=== PATIENT | male | born 1955 | race Caucasian/White ===

== ENCOUNTER 2017-01-20 21:31 | Emergency (ER) | payer OTHER ==
[~2017-01-20] VITALS: Ht 177.8 cm; Wt 81.8 kg
[~2017-01-20 21:31] MED LIST: IBUP-1827 PO; MULT-36 PO; OMEG1CAP5 PO
--- NOTE | 2017-01-20 21:41 | ED.REPORT ---
HPI-Chest Pain 40 and Over Date of Service Jan 20, 2017 ED Provider: Dr. Barry Kohler M.D. A 61 year old male with a medical history including hepatitis C, liver disease, and palpitations presents to the ED with intermittent episodes of exertional chest pain onset three weeks ago. The most recent episode started today with pain described as "heaviness" and radiation down his left arm. The episodes are usually accompanied by shortness of breath. The patient was seen by his PCP one week ago where he was diagnosed with a small NY due to elevated cardiac enzymes. Nursing Notes Stated Complaint: CHEST PAIN Nursing Notes Reviewed: Yes Allergies: Coded Allergies: Penicillins (Verified Allergy, Unknown, unknown, 01/20/17) was told had a reaction as a child Scheduled Multivitamin (Daily Multiple Vitamin) 1 Each Tablet 1 EACH PO DAILY Cresco-3 Fatty Acids/Fish Oil (Fish Oil 1,000 mg Capsule) 1 Each Capsule 1 EACH PO DAILY Scheduled PRN Ibuprofen (Ibuprofen) 600 Mg Tablet 600 MG PO QID PRN PRN For Pain General Time Seen by MD: 21:41 Chief Complaint Chest pain Hx Obtained From: Patient Arrived By: Walk-in Sudden in Onset?: Yes Onset Occurred: More than a week ago... (3 weeks) Symptom Duration: Intermittent Location: : Chest left: Chest right Quality: Heaviness, Painful Severity: Current: Moderate Severity: Maximum: Moderate Associated with: Reports: Shortness of Breath, Denies: Fever Pertinent Negative: Relieved by nothing Recent Healthcare: Recent doctor visit, Prior workup Similar Sx Previous: Yes Past Medical History Past Medical History Intermittent episodes of tachycardia Hepatitis C Liver disease Left spermatocele Small NY Past Surgical History Tonsillectomy Spermatocelectomy Smoking History Former Smoker Review of Systems Constitutional: Denies: Fever Respiratory: Reports: Shortness of breath, Denies: Non-productive cough Cardiovascular: Reports: Chest pain GI: Denies: Diarrhea, Vomiting Musculoskeletal: Reports: Extremity pain (Left arm) Complete sys rev & neg: except as marked. Physical Exam Initial Vital Signs Vital Signs (First) Date Time Temp Pulse Resp B/P Pulse Ox O2 Delivery O2 Flow Rate FiO2 01/20/17 21:44 36.6 54 14 155/91 99 Room Air Initial VS: Reviewed Head / Eyes: Atraumatic, Normocephalic ENT: Conjunctiva normal, No scleral icterus Extremities: Vascular intact, Neuro intact, No swelling Skin: Warm, Dry Neurologic: Alert, Oriented, Nonfocal Psychiatric: Mood/affect normal, Behavior normal, Normal thought content General/Constitutional: Awake, Alert, No acute distress, Well appearing, Well hydrated Respiratory / Chest: Breath sounds NL, Breath sounds = bilat, No respiratory distress, No chest tenderness Cardiovascular: Heart rate NL, Regular rhythm, Heart sounds NL Abdomen: Soft, Non-tender Neck: Supple, Full range of motion, No JVD Interpretation & Diagnostics Lab Results Interpretation Result Diagram: 01/20/17 2300 01/20/17 230 Test 01/20/17 23:00 White Blood Count 5.4th/mm3 (3.8-10.1) Red Blood Count 5.69mil/mm3 (4.40-5.80) Hemoglobin 17.3g/dL (13.8-17.2) Hematocrit 51.3% (41.0-50.0) Mean Corpuscular Volume 90.2fL (81-100) Mean Corpuscular Hemoglobin 30.4pg (27.0-35.0) Mean Corpuscular Hemoglobin Concent 33.7% (32.0-37.0) Red Cell Distribution Width 13.1% (12.3-15.4) Platelet Count 182bil/L (150-400) Neutrophils (%) (Auto) 48.5% (40-74) Lymphocytes (%) (Auto) 35.2% (14-46) Monocytes (%) (Auto) 12.3% (4-12) Eosinophils (%) (Auto) 3.1% (0-5) Basophils (%) (Auto) 0.7% (0-3) Band Neutrophils % 0% (1-5) Prothrombin Time 11.2sec (8.1-12.5) Prothromb Time International Ratio 1.05ratio Activated Partial Thromboplast Time 27.5sec (22.8-33.0) Sodium Level 140mEq/L (134-144) Potassium Level 4.0mEq/L (3.5-5.2) Chloride Level 100mEq/L (97-108) Carbon Dioxide Level 25mmol/L (18-29) Blood Urea Nitrogen 21mg/dL (8-27) Creatinine 0.95mg/dL (0.76-1.27) Estimat Glomerular Filtration Rate 85mL/min (>59) Glucose Level 98mg/dL (60-99) Calcium Level 9.5mg/dL (8.5-10.1) Magnesium Level 2.3mg/dL (1.6-2.6) Total Bilirubin 0.4mg/dL (0.0-1.2) Aspartate Amino Transf (AST/SGOT) 44U/L (0-50) Alanine Aminotransferase (ALT/SGPT) 42U/L (0-44) Alkaline Phosphatase 83U/L (25-160) Troponin T 0.010ug/L (0.0-0.011) Pro-B-Type Natriuretic Peptide 62.68pg/mL (0-210) Total Protein 7.5g/dL (6.4-8.4) Albumin 4.6g/dL (3.4-5.0) ECG Interpretation ECG Interpretation: Sinus rhythm rate 81 Time: 23:49 Interpreted by: ED physician ECG Interpretation: Sinus rhythm rate 54 Time: 00:00 Interpreted by: ED physician X-Ray Chest Interpretation Chest Xray Interpretation: Normal exam View: Portable, 1 view Interpretation / Wet Read by: Wet read ED physician Re-Eval/Medical Decision Med Decision/Clinical Course 61-year-old with classic story of angina during exertion. He has not had any rest symptoms. He had an episode earlier today with exercise it was brief and resolved with rest. He was advised by an office physician that his labs obtained two days ago showed elevated troponin and that he should present to the ER. EKG today is normal twice. His troponin many hours after the incident and is negative. He has classic basically stable angina, and may or may not have had a small NY previously, but at this point is stable for outpatient stress testing, which is his preference. Bed was discussed and offered but he is not interested in staying unless absolutely necessary. He is discharged now for stress testing issues that can be arranged. I suspect that will be grossly positive and he will require catheter intervention. Daily aspirin prescribed. Source of Hx: Old records Time of Eval: 23:50 Patient Status: Condition improved Re-Evaluation/Progress Note: Discussed with patient x-ray and lab results, diagnosis, and plan for discharge. Follow-up and return to the ER instructions given. Patient agrees with plan for care and all questions were addressed. Counseled Regarding: Diagnosis, Lab results, Need for follow-up, When/why to return to ED Discharge & Departure Shift Change Sign-Out Response to Therapy: Improved Primary Impression: Chest pain on exertion Disposition: Home Discharge Condition All VS Reviewed: Yes Condition: Improved Patient Instructions: Angina (ED) Additional Instructions: The pain new or experiencing is almost surely angina, meaning the heart is not getting enough blood during exercise. If you develop this kind of discomfort at rest,you need to return immediately. Your cardiogram is relatively normal at present, but may not be so once the pain starts, and you need a stress test as soon as that can be arranged. Call your doctor first thing in the morning to expedite your stress test. Take a baby aspirin daily. Return if any immediate issues. Referrals: Chandra Zheng MD (PCP) Deonte Allen MD Attestation Portions of this note were transcribed by Bethanie Wren. I, Dr. Kohler, personally performed the history, physical exam, and medical decision-making; I reviewed and confirmed the accuracy of the information in the transcribed note. Signed by: Pita Monroe, 01/21/2017, 02:05 copies to: Chandra Zheng MD; Deonte Allen MD, Christopher W MD Jan 20, 2017 21:41 BETHANIE WREN Jan 20, 2017 22:03
[2017-01-20 21:44] VITALS: BP 155/91; PULSE 54; RESP 14; O2SAT 99
[2017-01-20 23:14] LABS: INR 1.05 ratio
[2017-01-20 23:22] LABS: BASOPHILS % (AUTO) 0.7 % (0-3); EOSINOPHILS % (AUTO) 3.1 % (0-5); MONOCYTES % (AUTO) 12.3 % (4-12); Mean Corpuscular Hemoglobin 30.4 pg (27.0-35.0); Mean Corpuscular Volume 90.2 fL (81-100); NEUTROPHILS % (AUTO) 48.5 % (40-74); Platelet Count 182 bil/L (150-400)
[2017-01-20 23:41] LABS: Magnesium 2.3 mg/dL (1.6-2.6); TROPONIN T 0.01 ug/L (0.0-0.011)
[2017-01-21 00:12] VITALS: BP 141/83; PULSE 54; RESP 18; O2SAT 99
[2017-01-21 00:40] VITALS: BP 155/90; PULSE 57; RESP 16; O2SAT 98
--- NOTE | 2017-01-21 09:00 | DRSVH ---
PROCEDURE: X-RAY CHEST ONE VIEW, PORTABLE ([id number]) INDICATIONS: CHEST PAIN TECHNIQUE: One view of the chest was acquired. COMPARISON: [facility], CR, CHEST 2VW, 01/15/2017, 1:02 PM. [facility], CR, CHEST 1V W (PORTABLE), 01/08/2013, 23:09. FINDINGS: Surgical changes and devices: None. Lungs and pleura: No pleural effusions or pneumothorax. Lungs are clear. Mediastinum: Mediastinal contours appear normal. Heart size is normal. Bones and chest wall: No suspicious bony lesions. Overlying soft tissues appear unremarkable. IMPRESSION: No acute cardiopulmonary disease. Dictated by: Palomo YADAV Interpreted: Janna Li MD on 01/21/2017 at 8:59 Transcribed by: DEE on 01/21/2017 at 8:59 Approved by: Janna Li M.D. on 01/21/2017 at 16:37
[2017-01-31] MEDS ORDERED: IBUP200C PO (12:41)
[2017-01-31] MEDS ORDERED: ASPI325T32 PO (12:41)
[2017-01-31] MEDS ORDERED: NITR0.4T SL (12:41)
== END 2017-01-21 00:43 | disposition home or self-care (01) ==
LOC: SED 21:31
DX: R07.1 Chest pain on breathing (principal); Z87.891 Personal history of nicotine dependence; Z88.0 Allergy status to penicillin

== ENCOUNTER 2017-02-03 00:17 | Day surgery (SDC) | payer OTHER ==
[~2017-02-03] VITALS: Ht 177.8 cm; Wt 81.0 kg
[2017-02-03] VITALS (15 sets, daily range): BP systolic 120–164; BP diastolic 74–105; PULSE 49–62; RESP 9–23; O2SAT 98–100
[~2017-02-03 00:17] MED LIST changes: +ASPI325T32 PO; -IBUP-1827 PO; +IBUP200C PO; +NITR0.4T SL
--- NOTE | 2017-02-03 07:00 | NUR ---
ADMISSION NOTE MALE PT ADMITTED FOR HEART CATH . DISCUSSED PLAN OF CARE WITH PT AND FAMILY. SEE ADMIT AND FLOW SHEET
[2017-02-03 07:37] LABS: BASOPHILS % (AUTO) 0.6 % (0-3); EOSINOPHILS % (AUTO) 3.9 % (0-5); MONOCYTES % (AUTO) 12.6 % (4-12); Mean Corpuscular Hemoglobin 30.5 pg (27.0-35.0); NEUTROPHILS % (AUTO) 55.8 % (40-74); Platelet Count 170 bil/L (150-400)
[2017-02-03 07:52] LABS: INR 1.05 ratio
[2017-02-03] MEDS ORDERED: 0.9% Sodium Chloride 1,000 ML ONE (08:07)
[2017-02-03] MEDS ORDERED: Heparin 1,000 Units/500 mL NS Premix IV ONE ×2 (08:07→09:52)
[2017-02-03] MEDS ORDERED: Heparin 1,000 Unit/mL 10 mL Inj ONE ×3 (08:07→10:02)
[2017-02-03] MEDS ORDERED: Nitroglycerin 50,000 mcg/250 mL D5W Premix IV ONE (08:19)
--- NOTE | 2017-02-03 09:09 | DRSVH ---
[facility] [address] [place] [address] Echocardiogram Report Name: ROC YEH Date: 02/03/2017 Height: 70 in Hospital Exam Location: [facility] Weight: 180 lb Gender: Male BSA: 2.0 m2 : 1955 Age: 61 yrs BP: 154/91 mmHg Reason For Study: Abnormal stress test Ordering Physician: Performed By: Avinash Helms Interpretation Summary Normal sinus rhythm. Normal LV size, wall thickness, wall motion and LV systolic function. EF is 60-65%. Stage II diastolic dysfunction. No significant valvular abnormalities. No prior study available for comparison Procedure: A two-dimensional transthoracic echocardiogram with color flow and Doppler was performed. The study quality was technically good. There is no prior echocardiogram noted for this patient. The patient was in sinus bradycardia with heart rates between 51-60 bpm during the exam. Left Ventricle: The left ventricle is normal in size, wall thickness, and systolic function without any focal wall motion abnormalities. Proximal septal thickening is noted. Trabeculae near apex are visualized. No thrombus is observed. The ejection fraction is estimated to be 60-65%. Left ventricular wall motion is normal. Right Ventricle: The right ventricle is normal in size, thickness and function. Atria: The left atrial size is normal. The right atrium is borderline dilated. There is no Doppler evidence for an interatrial shunt. The atrial septum is aneurysmal. Mitral Valve: The mitral valve is normal. There is trace mitral regurgitation. Aortic Valve: The aortic valve is normal in structure and function. No aortic regurgitation is present. Tricuspid Valve: The tricuspid valve is normal. There is a trace or physiologic amount of tricuspid regurgitation. Pulmonary artery pressures cannot be estimated because of the lack of a measurable TR jet velocity. Pulmonic Valve: The pulmonic valve leaflets are thin and pliable; valve motion is normal. There is a trace or physiologic amount of pulmonic regurgitation. Great Vessels: The aortic root is normal size. The ascending aorta is mildly enlarged. The pulmonary artery is normal size. The IVC is of normal diameter and collapses greater than 50% with a sniff. This suggests a low right atrial pressure of 3 mm Hg. Pericardium/ Pleura There is no pericardial effusion. There is no pleural effusion. MMode/2D Measurements & Calculations LVIDd: 4.5 cm RA long axis LVOT diam: 2.1 cm LVIDs: 2.6 cm LA A2 area: 21.2 cm AoV Opening FS: 41.3 % LA A4 area: 14.6 cm RA area EPSS: 0.27 cm LA length (vol) Ao root diam IVSd: 0.98 cm : 18.0 cm LVPWd: 0.82 cm LA vol: 54.7 ml RA vol asc Aorta Diam LA vol index : 57.4 ml RA Ao Arch Diam (Prox : 28.7 mm2 Trans): 2.9 cm IVC diam: 0.98 cm LV costello. diameter/BSA LV sys. diameter/BSA RVD1 (basal) TAPSE: 2.2 cm (cm/m^2): 2.3 (cm/m^2): 1.3 Doppler Measurements & Calculations Ao V2 max: 134.5 cm/secMV E max xavi MV E/A: 1.4 PA V2 max Ao max P.2 mmHg : 73.3 cm/sec Med Peak E' Xavi : 67.8 cm/sec Ao mean P.7 mmHg MV A max xavi PA mean PG LVOT Max Xavi : 53.3 cm/sec E/E' med: 15.8 : 1.2 mmHg : 125.2 cm/sec Lat Peak E' Xavi ANNALISA(I,D): 3.3 cm E/E' lat: 10.7 sev ratio: 0.95 E/e' average MV A dur: 0.12 sec MV dec time: 0.22 sec Ao V2 mean LV V1 max PG PA V2 mean : 89.2 cm/sec : 52.4 cm/sec Ao V2 VTI: 30.9 cmLV V1 VTI: 29.3 cm PA pr(Accel) : 22.9 mmHg ANNALISA(V,D): 3.2 cm2 ANNALISA indexed to BSA (cm^2/m^2): 1.6 Reading Physician:09:08 AM
[2017-02-03] MEDS ORDERED: fentaNYL-PF 50 mCg/mL 2 mL Inj ONE ×2 (09:11→09:59)
[2017-02-03] MEDS ORDERED: Atropine 1 mg/10 mL (Code) Syringe ONE (10:13)
--- NOTE | 2017-02-03 10:35 | CS94 ---
[address] [address] DIAGNOSTIC CARDIAC CATHETERIZATION PATIENT: ROC YEH : 1955 MR#: [id number] ADMIT: 02/03/2017 JOB ID: [id number] SERVICE DATE: 02/03/2017 CHIEF COMPLAINT: Chest pressure. HISTORY OF PRESENT ILLNESS: The patient is a delightful, 61-year-old man, with no obvious coronary artery disease risk factors. He has exertional classic angina and abnormal graded exercise stress test characterized by abnormal ST depressions and apical perfusion defect. PROCEDURES PERFORMED: 1. Left heart [id number]-[id number] coronary angiogram. 2. Hemodynamic measurements with left ventricular end-diastolic pressure checkup. 3. Right common femoral angiogram with vascular access under ultrasound guidance. COMPLICATIONS: None in the immediate postprocedure period. METHOD: Following informed consent, the patient was prepped and draped in the usual sterile fashion. A 6-[place] Citizen sheath was placed in the right common femoral artery. Sheath placement was confirmed via femoral angiogram. JL4 and JR4 catheters were used to engage left main and right coronary artery ostia, respectively. Hand injection in craniocaudal angulation was used to obtain selective coronary angiograms. All exchanges were performed over a wire. Pigtail was advanced in the left ventricle. Left ventricular end-diastolic pressure was recorded. At this point in time, ventriculogram was deferred by intention in attempt to conserve contrast for upcoming intervention. FINDINGS: Femoral access right common femoral artery gives rise to SFA and profunda. There is no hemodynamically significant stenoses present. The sheath enters the right common femoral artery at the lower third of the femoral head. HEMODYNAMICS: Blood pressure is 161/83. There is no evidence of aortic stenosis based on pullback. The patient was in normal sinus rhythm during the case at a rate of 62 beats per minute. Left ventricular end-diastolic pressure is 13 mmHg. CORONARY ANGIOGRAM: Left main is normal caliber vessel, gives rise to the LAD and circumflex. No obstructive lesions are seen in the left main. There is no dampening on engagement. There is excellent blowback present. LAD is a wrap-around vessel. It demonstrates RADHA-II flow. There is an 80% proximal LAD lesion. It is best appreciated on BILLINGS caudal view or AP caudal view. LAD gives rise to a large diagonal branch, medium second diagonal branch and a very small third diagonal branch as well as multiple septal perforators. There is a 50% stenosis in the mid LAD at a correction point between the first and the second diagonal branch, but whether it is hemodynamically significant is questionable. It is interesting that right coronary artery seen to be filling via left to right collaterals. The circumflex is a nondominant vessel. It gives rise to a medium OM-1, a small OM-2, and small OM-3. Vessels are characterized by some tortuosity, which could be consistent with underlying hypertension. Right coronary artery is a dominant vessel. There is a long 50% stenosis in the midportion of the right coronary artery, and there is, unfortunately, an 80% stenosis in the proximal portion of the PDA. It is a short tubular lesion. Otherwise, there are no hemodynamically significant lesions present. IMPRESSION: Multivessel coronary artery disease with 80% proximal left anterior descending lesion, 50% mid left anterior descending lesion, and 80% posterior descending artery lesion. PLAN: Recommend interventional consultation and low threshold to pursue percutaneous coronary intervention to alleviate symptoms. Thank you very much for the opportunity to evaluate this patient.
--- NOTE | 2017-02-03 10:52 | NUR ---
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 SEE FLOW SHEET
--- NOTE | 2017-02-03 11:41 | DI95 ---
[place] [address] INTERVENTIONAL CARDIAC CATHETERIZATION PATIENT: ROC YEH : 1955 MR#: [id number] ADMIT: 02/03/2017 JOB ID: [id number] CORRECTED REPORT DATE OF PROCEDURE: 02/03/2017 PATIENT PROFILE: The patient is a 61-year-old male with history of hepatitis C. He presented with angina pectoris. PROCEDURE: 1. Balloon angioplasty and stenting to the proximal left anterior descending. 2. Balloon angioplasty and stenting to the ramus intermedius. VASCULAR CLOSURE DEVICE: Perclose. COMPLICATIONS: None. METHOD: Following diagnostic cardiac catheterization performed by Dr. Bai, the femoral sheath was upsized to a 7-[place] sheath. Heparin 12,000 units and prasugrel 60 mg were given. A 7-[place] JL4 guide was advanced to the left coronary ostium. One Runthrough wire was placed inside the left anterior descending artery. Another Runthrough wire was placed inside the ramus intermedius. The left anterior descending artery lesion was pre-dilated with a 2.5 x 20 mm balloon. The ramus intermedius was pre-dilated with a 2.0 x 15 mm balloon. A Resolute 2.75 x 26 mm stent was placed inside the left anterior descending artery, and a Xience 2.25 x 18 mm stent was placed inside the ramus intermedius. Both stents were deployed simultaneously, with the Resolute inflated up to 9 atmospheres and Xience inflated up to 10 atmospheres for 30 seconds. A 3.0 x 12 mm balloon was used for post stent deployment dilation in the left anterior descending artery. It was inflated up to 17 atmospheres for 30 seconds. Final angiogram was obtained. Following sheath removal, hemostasis was achieved by using Perclose device. The patient tolerated the procedure well. He was transferred to [facility] in good condition. TOTAL CONTRAST USED: 150 cc. FLUOROSCOPY TIME: 7.9 minutes. TOTAL RADIATION DOSE: 1045 milligray. RESULTS: Successful balloon angioplasty and stenting to the tight proximal left anterior descending and proximal ramus intermedius by deploying two drug-eluting stents to achieve an excellent angiographic result with RADHA-3 flow distally. Corrected by GS 03/27/17 at 8:05am DOS. MTDD
== END 2017-02-03 23:59 | disposition home or self-care (01) ==
LOC: SOUO 00:17
PROVIDERS: ATTEND Internal Medicine
DX: I25.119 Atherosclerotic heart disease of native coronary artery with unspecified angina pectoris (principal); B18.2 Chronic viral hepatitis C; Z87.891 Personal history of nicotine dependence; Z79.82 Long term (current) use of aspirin; E78.5 Hyperlipidemia, unspecified
CPT/HCPCS: 36415; 80048; 85025; 85610; 93005; 93458; 99152; 99153; C1725; C1760; C1769; C1874; C1887; C8929; C9600; J1200; J1644; J2060; J2250; J3010; J7030; Q9967

== ENCOUNTER 2017-02-06 16:43 | Inpatient (IN) | payer OTHER ==
[~2017-02-06] VITALS: Ht 177.8 cm; Wt 76.2 kg
[~2017-02-06 16:43] MED LIST changes: -OMEG1CAP5 PO
[2017-02-06 16:44] VITALS: BP 153/106; PULSE 63; RESP 16; O2SAT 99
--- NOTE | 2017-02-06 17:18 | ED.REPORT ---
HPI-Chest Pain 40 and Over Date of Service Feb 06, 2017 ED Provider: Abdulaziz Pratt DO Pt is a 61 y.o. male who presents to the ED c/o left chest pain onset 0230 today. Pt states that he woke up at 0230 with severe chest pain that lasted 30 minutes, he was then able to go back to sleep. Upon waking up he had left chest pain described as dull, deep, and constant. He states that the pain worsens with exertion and improved when he used Nitro. Pt reports having 4 stents placed 2 days ago, and upon discharge from the hospital he was pain free. He says his current pain is similar to what he felt prior to getting his stress test and stents placed. He contacted his brasswind instrument repairer earlier today and she recommended he come into the ED. He denies associated nausea, vomiting, diarrhea , SOB, and fever. Nursing Notes Stated Complaint: CHEST PAIN Chief Complaint: Chest Pain Nursing Notes Reviewed: Yes Allergies: Coded Allergies: Penicillins (Verified Allergy, Unknown, unknown, 02/06/17) was told had a reaction as a child Scheduled Aspirin (Aspirin) 325 Mg Tablet 162.5 MG PO DAILY Clopidogrel (Clopidogrel) 75 Mg Tablet 75 MG PO DAILY Multivit with Calcium,Iron,Min (Therapeutic M) 1 Each Tablet 1 EACH PO DAILY Scheduled PRN Carboxymethylcellulose Sodium (Refresh Tears) 15 Ml Drops 1 APPLIC OP PRN PRN PRN DRY EYES Hydrocortisone (Hydrocortisone) 1 % Cream..g. 1 APPLIC TOPICAL BID PRN PRN For Itching Ibuprofen (Ibuprofen) 200 Mg Capsule 400 MG PO DAILY PRN PRN Headache USES SPARINGLY Nitroglycerin SL (Nitrostat) 0.4 Mg Tab.subl 0.4 MG SL Q5MIN PRN PRN For Chest Pain Sildenafil Citrate (Sildenafil) 20 Mg Tablet 20 MG PO DIRECTED PRN PRN for sexual activity General Time Seen by MD: 17:17 Chief Complaint Chest pain Hx Obtained From: Patient Arrived By: Walk-in Sudden in Onset?: Yes Onset Occurred: 9 - 12 hours ago Context of Onset: Recent surgery Symptom Duration: Intermittent Location: : Chest left Quality: Dull, Painful Radiation: : Does not radiate Severity: Current: Moderate Severity: Maximum: Severe Recent Healthcare: Previous surgery Past Medical History Past Medical History Intermittent episodes of tachycardia Hepatitis C Liver disease Left spermatocele Small [place] Past Surgical History Tonsillectomy Spermatocelectomy Cardiac stents Smoking History Former Smoker Review of Systems Constitutional: Denies: Fever Respiratory: Denies: Shortness of breath Cardiovascular: Reports: Chest pain GI: Denies: Diarrhea, Nausea, Vomiting Complete sys rev & neg: except as marked. Physical Exam Initial Vital Signs Vital Signs (First) Date Time Temp Pulse Resp B/P Pulse Ox O2 Delivery O2 Flow Rate FiO2 02/06/17 16:44 36.7 63 16 153/106 99 Room Air Initial VS: Reviewed Head / Eyes: Atraumatic, Normocephalic Extremities: Vascular intact, Neuro intact Skin: Warm, Dry, No cyanosis Neurologic: Alert, Oriented, Nonfocal Psychiatric: Mood/affect normal, Behavior normal, Normal thought content General/Constitutional: Awake, Alert, No acute distress, Well appearing, Well developed, Well hydrated, Well nourished, Not toxic appearing Respiratory / Chest: Atraumatic, Breath sounds NL, Breath sounds = bilat, No respiratory distress, No rales, No rhonchi, No wheezing, No retractions, No stridor, No chest tenderness Cardiovascular: Heart rate NL, Regular rhythm, Heart sounds NL, No gallop, No murmurs, No rubs, Peripheral circulation NL Abdomen: Atraumatic, Soft, Non-tender, No distention Interpretation & Diagnostics Lab Results Interpretation Result Diagram: 02/06/17 1723 02/06/17 1723 Test 02/06/17 17:23 White Blood Count 5.1th/mm3 (3.8-10.1) Red Blood Count 5.53mil/mm3 (4.40-5.80) Hemoglobin 16.8g/dL (13.8-17.2) Hematocrit 49.4% (41.0-50.0) Mean Corpuscular Volume 89.3fL (81-100) Mean Corpuscular Hemoglobin 30.4pg (27.0-35.0) Mean Corpuscular Hemoglobin Concent 34.0% (32.0-37.0) Red Cell Distribution Width 13.0% (12.3-15.4) Platelet Count 172bil/L (150-400) Neutrophils (%) (Auto) 66.6% (40-74) Lymphocytes (%) (Auto) 23.3% (14-46) Monocytes (%) (Auto) 8.0% (4-12) Eosinophils (%) (Auto) 1.9% (0-5) Basophils (%) (Auto) 0.2% (0-3) Activated Partial Thromboplast Time 27.5sec (22.8-33.0) Sodium Level 140mEq/L (134-144) Potassium Level 4.4mEq/L (3.5-5.2) Chloride Level 104mEq/L (97-108) Carbon Dioxide Level 21mmol/L (18-29) Blood Urea Nitrogen 20mg/dL (8-27) Creatinine 0.87mg/dL (0.76-1.27) Estimat Glomerular Filtration Rate 94mL/min (>59) Glucose Level 104mg/dL (60-99) Calcium Level 9.1mg/dL (8.5-10.1) Magnesium Level 2.2mg/dL (1.6-2.6) Total Bilirubin 0.5mg/dL (0.0-1.2) Aspartate Amino Transf (AST/SGOT) 39U/L (0-50) Alanine Aminotransferase (ALT/SGPT) 36U/L (0-44) Alkaline Phosphatase 78U/L (25-160) Total Creatine Kinase 169U/L (21-232) Creatine Kinase MB 5.0ng/mL (0.0-10.4) Creatine Kinase MB % % (0.0-5.0) Troponin T 0.065ug/L (0.0-0.011) Total Protein 7.2g/dL (6.4-8.4) Albumin 4.4g/dL (3.4-5.0) Thyroid Stimulating Hormone (TSH) 4.320uIU/mL (0.450-4.500) ECG Interpretation ECG Interpretation: No acute ST segment depression or elevation Poor R-wave progression Q-waves in V1-V2 Time: 16:55 Interpreted by: ED physician Normal ECG Interpretation: Normal rate (57), Normal sinus rhythm Cardiac / Vascular Lab Interp Troponin abnormal Re-Eval/Medical Decision Med Decision/Clinical Course Chest pain and elevated troponin status post cath and stent placement. EKG does not show evidence of a devastating stent occlusion however. Signs and symptoms are consistent with a non-ST elevation [place] versus acute coronary syndrome. We will admit on IV heparin and nitrates and aspirin and the first of Plavix he is taking. I consulted with cardiology home concurs. Admit to the PCU for serial troponins and possible back to the sleep lab technician. Consultation #1: Referral / Consult Name: Hema Zuleta MD Call Returned at: 18:35 Note: Consulted with Dr. Zuleta about pt condition. Recommends administering Heparin and Plavix. Consultation #2: Referral / Consult Name: Brandon Mcpherson MD Consulted With: Hospitalist Call Returned at: 18:46 Chief Service Observer: Will see patient, Agrees with eval, Agrees with plan, Accepts admit Note: Discussed pt condition and consult with Dr. Zuleta. Accepts admit. Counseled Regarding: Diagnosis Discharge & Departure Primary Impression: Non-ST elevation myocardial infarction (NSTEMI) Disposition: ADMITTED TO HOSPITAL Discharge Condition All VS Reviewed: Yes Condition: No Change Referrals: Deonte Allen MD (PCP) Pita Attestation Portions of this note were transcribed by Juaquin Godinez. I, Dr. Pratt personally performed the history, physical exam and medical decision-making; I reviewed and confirmed the accuracy of the information in the transcribed note. Signed by : Pita Garibay, 02/06/17 and 1999. copies to: Deonte Allen MD, Todd P DO Feb 06, 2017 17:18 JUAQUIN GODINEZ Feb 06, 2017 17:26
[2017-02-06] MEDS ORDERED: Nitroglycerin 2% 1 Gm Ointment TOPICAL ONE (17:25)
[2017-02-06 17:35] LABS: BASOPHILS % (AUTO) 0.2 % (0-3); EOSINOPHILS % (AUTO) 1.9 % (0-5); Mean Corpuscular Hemoglobin 30.4 pg (27.0-35.0); Mean Corpuscular Volume 89.3 fL (81-100); NEUTROPHILS % (AUTO) 66.6 % (40-74); Platelet Count 172 bil/L (150-400)
--- NOTE | 2017-02-06 18:05 | DRSVH ---
PROCEDURE: X-RAY CHEST, TWO VIEWS ([id number]) INDICATIONS: chest pain TECHNIQUE: 2 views of the chest were acquired. COMPARISON: [facility], CR, XR CHEST 1VW (PORTABLE), 01/20/2017, 22:18. FINDINGS: Surgical changes and devices: customer service consultant leads are seen over the chest. Lungs and pleura: No pleural effusions or pneumothorax. Lungs are clear. Mediastinum: Mediastinal contours are normal. Heart size is normal. Bones and chest wall: No suspicious bony abnormalities. Soft tissues appear unremarkable. IMPRESSION: No acute or active disease is seen in the two-view chest. Cause of chest pain is not iden tified. Dictated by: Tenzin Hayden M.D. on 02/06/2017 at 18:03 Approved by: Tenzin Hayden M.D. on 02/06/2017 at 18:04
[2017-02-06 18:12] LABS: Magnesium 2.2 mg/dL (1.6-2.6)
[2017-02-06 18:17] LABS: TROPONIN T 0.065 ug/L (0.0-0.011)
[2017-02-06 18:23] VITALS: BP 138/91; PULSE 58; O2SAT 97
[2017-02-06] MEDS ORDERED: Heparin 25K Unit/500mL 0.45 NS 25,000 UNIT in IV Premix 1 EACH IV SCH (18:35)
[2017-02-06] MEDS ORDERED: Heparin 5,000 Unit/mL Inj IVPUSH PRN (18:35)
[2017-02-06 18:39] VITALS: BP 148/88; PULSE 60
[2017-02-06] MEDS ORDERED: Ondansetron 2 mg/mL 2 mL Inj IVPUSH PRN (18:50)
[2017-02-06] MEDS ORDERED: Alum-Mag Hydrox-Simeth 30 mL Suspension PO PRN (18:50)
[2017-02-06] MEDS ORDERED: Atropine 1 mg/10 mL (Code) Syringe IVPUSH PRN (18:50)
[2017-02-06] MEDS ORDERED: Polyethylene Glycol (PEG) 17 Gm Powder PO PRN (18:50)
[2017-02-06] MEDS ORDERED: Senna-Docusate 8.6-50 mg Tablet PO PRN (18:50)
--- NOTE | 2017-02-06 19:25 | PCM.HPMED ---
Subjective Date of Service Feb 06, 2017 Primary Provider: Admitting Physician: Primary Care Physician: Deonte Allen MD Attending Physician: Chief Complaint: Chest pain Allergies Coded Allergies: Penicillins (Verified Allergy, Unknown, unknown, 02/06/17) was told had a reaction as a child Home Medications Ibuprofen (Ibuprofen) 200 Mg Capsule 200 MG PO QID PRN PRN For Pain Nitroglycerin SL (Nitrostat) 0.4 Mg Tab.subl 0.4 MG SL Q5MIN PRN PRN For Chest Pain PMH Intermittent episodes of tachycardia Hepatitis C Liver disease Left spermatocele Small [place] Surgical History Tonsillectomy Spermatocelectomy Cardiac stents Social History Hx Alcohol Use: No Hx Substance Use: No (REMOTE HX OF MARIJUANA) Smoking Status: Former Smoker Exam Vital Signs Vital Sign - Last Date Time Temp Pulse Resp B/P Pulse Ox O2 Delivery O2 Flow Rate FiO2 02/06/17 18:39 60 148/88 02/06/17 18:23 97 02/06/17 16:44 36.7 16 Room Air Lab and Diagnostics Result Diagram: 02/06/17 1723 02/06/17 1723 X-Rays, CTs and MRIs Chest X-ray reviewed : No acute or active disease is seen in the two-view chest. Cause of chest pain is not identified. EKG : No ST depression or elevation Assessment & Plan 1. SNTEMI 2. Hyoertensive Urgency 3. h/o CAD Telemetry monitoring . 12 EKG for recurrent chest pain or worsening chest pain Aspirin 81 mg PO daily . Start Metoprolol 25 mg PO twice daily. Atorvastatin 40 mg PO daily. Nitroglycerine for chest pain . Morphine sulfate for chest marshall not relieved by nitroglycerine Heparin drip per protocol. Cardiology consulted for possible cardiac cath . Troponin trend. 1st set positive ( 0.06) A1c, TSH, Lipid profile, CRP . Pain Evaluation: Adequate Pain Control VTE Prophylaxis: Other (Anticoagulation iwth heparin drip ) Resuscitation Status: CPR: Attempt Resuscitation Time spent 75 minutes Brandon Mcpherson MD Feb 06, 2017 19:24
[2017-02-06 19:42] LABS: Creatine Kinase 169 U/L (21-232)
--- NOTE | 2017-02-06 20:31 | PCM.HPMED ---
Subjective Date of Service Feb 06, 2017 Primary Provider: Admitting Physician: Brandon Mcpherson MD Primary Care Physician: Deonte Allen MD Attending Physician: Brandon Mcpherson MD Chief Complaint: Chest pain History of Present Illness: 61 y/o with pst medical history of hypertension, CAD with cardiac catheterization and stent placement 2 days ago came to ER with sudden onset of cheat pain , 6-7/10 in intensity, non radiating , relived with nitroglycerine . Patient stated he called his core winder who recommended him to come to the ER for evaluation. Work up show mildly elevated troponin but no EKG changes. Patient denies , fever, chills , shortness of breath. He stated he has been complaint with his Plavix an Aspirin since his stent placement 2 days ago. His BP was above 200 systolic on presentation with a diastolic od 120 Review of Systems: A comprehensive review x 10 points is negative except for chest pain as described above in HPI Allergies Coded Allergies: Penicillins (Verified Allergy, Unknown, unknown, 02/06/17) was told had a reaction as a child Home Medications Ibuprofen (Ibuprofen) 200 Mg Capsule 200 MG PO QID PRN PRN For Pain Nitroglycerin SL (Nitrostat) 0.4 Mg Tab.subl 0.4 MG SL Q5MIN PRN PRN For Chest Pain PMH Intermittent episodes of tachycardia Hepatitis C Liver disease Left spermatocele Small [place] Surgical History Cardiac catheterization and stent placement Family History Reviewed and is positive for multiple cancer but no CAD Social History Hx Alcohol Use: No (A beer or 2 daily) Hx Substance Use: No (REMOTE HX OF MARIJUANA) Smoking Status: Former Smoker Living Arrangement: with Family Exam Vital Signs Vital Sign - Last Date Time Temp Pulse Resp B/P Pulse Ox O2 Delivery O2 Flow Rate FiO2 02/06/17 18:39 60 148/88 02/06/17 18:23 97 02/06/17 16:44 36.7 16 Room Air General: Alert, Oriented X3, Cooperative, No Acute Distress Head: Normal Eyes: PERRLA, EOMI, Scleral Anicteric Mouth: Mucous Membr Moist/[place] Neck: Supple, No Thyromegaly, Other (Trachea is midline ) Chest & Lungs: Clear to auscultation & percussion, No adventitious breath sounds Cardiovascular: Regular Rate/Rhythm, Normal S1, Normal S2, No Murmurs/Rubs/ Gallops Abdomen: Non-tender, Benign, No masses, No hepatosplenomegaly Extremities: No cyanosis/clubbing/edma bilat Neurological: Grossly Neurologically Intact, Cranial Nerves 2-12 Intact, Strength Normal 03/04 ext Lab and Diagnostics Result Diagram: 02/06/17 1723 02/06/17 1723 X-Rays, CTs and MRIs Chest X-ray reviewed : No acute or active disease is seen in the two-view chest. Cause of chest pain is not identified. EKG : No ST depression or elevation IVs and Medications Medications Reviewed: Medications were reviewed in detail Assessment & Plan 1. SNTEMI 2. Hypertensive Urgency 3. h/o CAD 4. Diastolic and systolic Hypertension Telemetry monitoring . 12 EKG for recurrent chest pain or worsening chest pain Aspirin 81 mg PO daily . Plvix 75 mg PO daily Start Metoprolol 25 mg PO twice daily for hypertension and hoping of some diastolic relaxation . HE will need titration for BP control Patient had both systolic and diastolic hypertension Atorvastatin 40 mg PO daily. Nitroglycerine for chest pain . Morphine sulfate for chest marshall not relieved by nitroglycerine Heparin drip per protocol. Troponin trend. 1st set positive ( 0.06) . Elevated topspin is likely due to recent cardiac catheterization and stent placement ( 2 days ago) . His chest pain may be provoked by uncontrolled hypertension with systolic of 200 on presentation in-stent stenosis is less likely . Patient sated he is complaint with both Aspirin and Plavix . A1c, TSH, Lipid profile Cardiology consulted for further recommendation Pain Evaluation: Adequate Pain Control VTE Prophylaxis: Other (Anticoagulation iwth heparin drip ) Resuscitation Status: CPR: Attempt Resuscitation Time spent 75 minutes Brandon Mcpherson MD Feb 06, 2017 20:30
[2017-02-06 20:34] VITALS: BP_SYST 131; BP_SYST 156; BP_DIAS 104; BP_DIAS 75; PULSE 64; RESP 12; O2SAT 97; O2SAT 98
[2017-02-06] MEDS ORDERED: HYDR28.484 TOPICAL (20:45)
[2017-02-06] MEDS ORDERED: CLOP75TA28 PO (20:45)
[2017-02-06] MEDS ORDERED: MULT-140 PO (20:45)
[2017-02-06] MEDS ORDERED: CARB15DR74 OP (20:46)
[2017-02-06] MEDS ORDERED: SILD20TA14 PO (20:47)
[2017-02-06 23:25] VITALS: PULSE 85
[2017-02-06 23:52] VITALS: BP 147/69; PULSE 60; O2SAT 99
[2017-02-07] VITALS (14 sets, daily range): BP systolic 125–181; BP diastolic 74–107; PULSE 48–62; RESP 10–16; O2SAT 96–100
[2017-02-07] MEDS: Sodium Chloride LOK Flush 10 mL Syringe IVFLUSH SCH ×3 (00:54→19:59)
[2017-02-07 03:04] LABS: BASOPHILS % (AUTO) 0.7 % (0-3); EOSINOPHILS % (AUTO) 6.3 % (0-5); MONOCYTES % (AUTO) 11.3 % (4-12); Mean Corpuscular Hemoglobin 30.4 pg (27.0-35.0); Mean Corpuscular Volume 90.1 fL (81-100); NEUTROPHILS % (AUTO) 50.6 % (40-74); Platelet Count 154 bil/L (150-400)
[2017-02-07 04:08] LABS: Creatine Kinase 136 U/L (21-232)
[2017-02-07 04:10] LABS: TROPONIN T 0.071 ug/L (0.0-0.011)
--- NOTE | 2017-02-07 13:22 | CONS ---
[address] [address] CONSULTATION REPORT PATIENT: ROC YEH : 1955 MR#: [id number] ADMIT: 02/06/2017 JOB ID: [id number] DATE OF SERVICE: 02/07/2017 CARDIOLOGY CONSULTATION: REASON FOR CONSULTATION: I have been asked to see the patient who is a very pleasant, 61-year-old gentleman presenting with recurrent unstable anginal symptoms three days out following stent placement to the LAD and ramus intermedius. HISTORY OF PRESENT ILLNESS: The patient has been aware of exertional burning precordial chest discomfort, which he assumed was pulmonary related over about the past month. His primary care provider ordered an exercise stress study, which was significantly abnormal, and he was referred to Dr. Bai a week ago. He was admitted on February 03 for diagnostic coronary angiography, which demonstrated evidence of significant disease involving his proximal LAD, involving also a ramus intermedius vessel, with diffuse atherosclerosis in his right coronary artery, with about an 80% PDA lesion noted as well. The patient underwent stent placement with two drug-coated stents. The proximal LAD was stented with a 2.75 x 26 mm drug-eluting stent, and the ramus intermedius vessel was stented with a 2.25 x 18 mm drug-eluting stent. Patient was discharged home on aspirin and Plavix but was not discharged home on any other cardiac medications including statins. Early morning at around 2:30, he was awakened by symptoms of burning precordial chest discomfort, which gradually resolved but recurred off and on throughout the day most of the time at rest. On one occasion, he took a sublingual nitroglycerin, which was successful in alleviating the discomfort. He contacted our office yesterday late afternoon and was advised to present to the emergency department for evaluation. In the emergency department his blood work was notable for a troponin level of 0.065. His ECG showed no ST-segment changes of any significance, and the patient was admitted to the hospital and started up on nitrates, aspirin and intravenous heparin, and was kept n.p.o. for possible cardiac catheterization. Today, this patient states that he has been feeling generally well. He relates that he has been aware of moderate hypertension over the years, as he has visited his physicians with blood pressures ranging between 130 to 160 systolic, though he has not been treated. His cholesterol has not been checked for many years. He does not have a family history of chronic ischemic heart disease, and quit smoking in the late . PAST MEDICAL HISTORY: Otherwise notable for history of hepatitis C, which was treated with medication and apparently, he has been cured. HOME MEDICATIONS: Include: 1. Aspirin 162 mg daily. 2. Clopidogrel 75 mg daily. 3. Multivitamin daily. 4. He does have Viagra at home which he uses as needed for sexual activity, and it is very important that we make sure that he knows the contraindication to Viagra anytime surrounding nitroglycerin medication administration. REVIEW OF SYSTEMS: Notable for the absence of cough or sputum production. He has had no complaints of fever. He denies any history of stroke or TIA-like symptoms, and has no complaints of claudication. He has no bleeding issues. He knows of no kidney problems. His review of systems is otherwise unremarkable. PHYSICAL EXAMINATION: Shows a normal appearing 61-year-old gentleman. He is 5 feet 10 inches tall, 167 pounds. Body mass index 24. Current blood pressure is 125/74 with a heart rate in the 60s. He is saturating 98% on room air and is afebrile. HEENT examination is unremarkable. Jugular venous pressure looks normal. No carotid bruits. Lung sparks are clear. Cardiac auscultation is notable for a fairly prominent S4 gallop audible at the left lower sternal border without any significant murmurs. Abdomen is soft and nontender. No palpable organomegaly. I hear no aortic bruits. Femoral pulses are normal without bruit. Distal extremity pulses are normal. He has no edema. Skin is unremarkable. No focal neurologic findings noted. He is alert and oriented and provides a good history. LABORATORY DATA: Notable for normal CBC. His troponin level is abnormal and has increased slightly from 0.065 to 0.071. A TSH level is normal. His LDL cholesterol is 110, his total cholesterol 191, triglycerides up somewhat at 207 with an HDL cholesterol of 40. Renal function is normal with normal electrolytes. DIAGNOSTIC DATA: Admission EKG appears normal. The patient's chest x-ray looks normal as well. IMPRESSION: The patient presents three days following two drug-eluting stent placements, with recurrent unstable angina and evidence of probable [id number]-[id number] myocardial infarction. It would be very unusual for him to have early stent thrombosis in view of his aspirin and Plavix therapy. It is possible that his symptoms relate to his right coronary lesion and the posterior descending artery and clearly, diagnostic coronary angiography is needed. I have spoken with Dr. Mattson who did his intervention three or four days ago, and he is willing to proceed with diagnostic coronary angiography this afternoon. I have spoken with the patient regarding the potential risks of coronary angiography and repeat stenting. We talked about the benefits particularly in view of his positive enzymes and unstable symptoms. He is aware of all these factors and is anxious to proceed as recommended. This patient needs to go home on medication for hypertension and for dyslipidemia. He should go home on 80 mg of atorvastatin daily and probably a long-acting beta-valeria such as atenolol 25-50 mg daily or an angiotensin-converting enzyme inhibitor such as lisinopril 20 mg daily since he is somewhat bradycardic today. I will plan on following up with his progress tomorrow and make further recommendations prior to anticipated discharge.
[2017-02-07] MEDS ORDERED: Nitroglycerin 50,000 mcg/250 mL D5W Premix IV ONE (14:09)
[2017-02-07] MEDS ORDERED: Heparin 1,000 Unit/mL 10 mL Inj ONE ×2 (14:09→15:56)
[2017-02-07] MEDS ORDERED: 0.9% Sodium Chloride 1,000 ML ONE ×2 (14:09)
[2017-02-07] MEDS ORDERED: Heparin 1,000 Units/500 mL NS Premix IV ONE (14:09)
[2017-02-07] MEDS ORDERED: fentaNYL-PF 50 mCg/mL 2 mL Inj ONE ×2 (14:44→16:00)
[2017-02-07] MEDS ORDERED: Adenosine Inj 20 ML IV ONE ×2 (15:15)
[2017-02-07] MEDS ORDERED: 0.9% Sodium Chloride 100 ML ONE (15:16)
--- NOTE | 2017-02-07 16:38 | NUR ---
pOST CARDIAC CATH: Patient arrives from [facility], alert and denying pain. Monitor displays NSR, right groin site is dry, soft and bruised. Bruising pre-existing from Cath on 02/04.
--- NOTE | 2017-02-07 16:50 | DI95 ---
[address] [address] INTERVENTIONAL CARDIAC CATHETERIZATION PATIENT: ROC YEH : 1955 MR#: [id number] ADMIT: 02/06/2017 JOB ID: [id number] CORRECTED REPORT DATE OF PROCEDURE: 02/07/2017 PATIENT PROFILE: The patient is a 61-year-old male who underwent angioplasty and stent placement to the proximal left anterior descending artery and ramus intermedius four days ago. He presented with [id number] myocardial infarction. PROCEDURE: 1. Retrograde left heart catheterization. 2. Selective coronary angiography. 3. Fractional flow reserve to the mid right coronary artery. 4. Balloon angioplasty and stenting to the right posterior descending branch. 5. Fractional flow reserve to the proximal circumflex artery. 6. Vascular closure device, Perclose. COMPLICATIONS: None. METHOD: Retrograde left heart catheterization was performed from the right groin under 1% lidocaine local anesthesia using a 6-Micronesian sheath. Selective coronary angiogram was performed in multiple projections, including cranial and caudal angulations with hand injected contrast via JL4 and 3DRC catheters. Heparin 4,000 units were given. A 6-Micronesian 3DRC guide was advanced to the right coronary ostium. A flow wire was directed into the right coronary artery. Adenosine was given infusion IV. FFR of the mid right coronary artery was measured at 0.91, which indicates nonhemodynamic significant stenosis. The flow wire was then removed. Additional heparin was given. A Runthrough wire was placed inside the right posterior descending branch. The right posterior descending branch lesions were pre-dilated with a 2.5 x 12 mm balloon. A guide liner was then used for better support. A Xience 2.25 x 12 mm stent was placed inside the mid right posterior descending branch lesion and deployed at 20 atmospheres for 20 seconds. Another Xience 2.25 x 12 mm stent was placed in the proximal right posterior descending branch lesion and deployed at 20 atmospheres for 20 seconds. Nitroglycerin 150 mcg was given intracoronary. Final angiogram was obtained. The attention was then turned to the circumflex artery. A 6-Micronesian CLS 4 guide was advanced to the left coronary ostium. A flow wire was placed inside circumflex artery. FFR of the proximal circumflex artery lesion was measured at 0.89, which indicates nonhemodynamic stenosis. The procedure was terminated. Right femoral angiogram was performed. Following sheath removal, hemostasis was achieved by using a Perclose device. The patient tolerated procedure well. He was transferred to [facility] in good condition. Total contrast used: 90 cc. Fluoro time: 6.2 minutes. Total radiation dose: 526 milligray. RESULTS: 1. Selective coronary angiogram: a. Left main coronary artery has minor 10% to 20% stenosis in the distal portion. b. The left anterior descending artery is transapical and has minor irregularity. The previous stent in the proximal portion is widely patent. c. The ramus intermedius has minor irregularity. The previous stent in the proximal portion is widely patent. d. The circumflex artery has 50% to 60% stenosis at its origin. e. The dominant right coronary artery has 50% to 60% stenosis in the mid portion and minor irregularity in the distal portion. The right posterior descending branch has tandem 95 and 70% stenosis. 2. FFR of the mid right coronary artery is 0.91, which indicates nonhemodynamic significant stenosis. 3. FFR of the proximal circumflex artery is 0.89, which indicates nonhemodynamic significant stenosis. 4. Balloon angioplasty and stenting was performed to the tight culprit right posterior descending branch lesion by deploying two drug-eluting stents to achieve an excellent angiographic result with RADHA-3 flow distally. CONCLUSION: 1. Widely patent left anterior descending and ramus intermedius stents. 2. Moderate disease of the circumflex artery and mid right coronary artery. 3. Tandem 95% and 70% stenosis of the right posterior descending branch and this was successfully treated with two drug-eluting stents. Corrected by GS 03/27/17 at 8:08am DOS. MTDD
[2017-02-07] MEDS ORDERED: Atropine 1 mg/10 mL (Code) Syringe IVPUSH PRN (17:35)
[2017-02-07] MEDS ORDERED: 0.9% Sodium Chloride 250 ML BOLUS IV PRN (17:35)
[2017-02-07] MEDS ORDERED: 0.9% Sodium Chloride 400 ML (4 HRS) IV ONE (17:35)
[2017-02-07] MEDS ORDERED: Ondansetron 2 mg/mL 2 mL Inj IVPUSH PRN (17:35)
[2017-02-07] MEDS ORDERED: Sodium Chloride LOK Flush 10 mL Syringe IVFLUSH PRN (17:35)
--- NOTE | 2017-02-07 18:10 | NUR ---
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 No chest pain this morning, including no pain on a walk around the unit. After a cardiology consult, the pt was brought back to the laborer road around 1500. The pt is currently still off the unit in [place]. He left the unit A&O x3 with vitals WNL with no chest pain.
--- NOTE | 2017-02-07 18:49 | NUR ---
[facility] PT WAS RECEIVED FROM [facility] AT 1630. RIGHT GROIN WITH PERCLOSE HAS REMAINED SOFT, BRUISED, NO BLEEDING NOTED. PT DOES C/O SOME TENDERNESS AND WAS MEDICATED WITH TYLENOL WHICH WAS EFFECTIVE. RIGHT DP 2+. HE IS TAKING PO FLUIDS AND TOLERATED HIS MEAL WELL. PT AND HIS NURSING CARE WERE TRANSFERRED BACK TO ROOM 2022 AT 1840. RN TO RN BEDSIDE HAND OFF WAS DONE WITH JUAN CARLOS Marie RN. TELE ON. BEDREST UNTIL 2029.
--- NOTE | 2017-02-07 19:23 | PCM.PNMED ---
Subjective Date of Service Feb 07, 2017 Subjective Overnight: No acute event. BP remains elevated at 140s/80s. No chest pain. Today: Patient was in the labor mediator in the afternoon and was not seen. Exam Vital Signs Vital Sign - Last Date Time Temp Pulse Resp B/P Pulse Ox O2 Delivery O2 Flow Rate FiO2 02/07/17 18:30 55 15 154/87 99 Room Air 02/07/17 14:01 36.5 Intake and Output 02/06/17 02/06/17 02/07/17 Cumulative From/Thru 15:00 23:00 07:00 02/06/17 16:44 - 02/07/17 06:23 Intake Total 182 ml 182 ml Balance 182 ml 182 ml IV Total 182 ml 182 ml Exam Exam was not done due to patient was in the labor mediator for half of the day. IVs and Medications Medications Reviewed: Medications were reviewed in detail Lab and Diagnostics Result Diagram: 02/07/17 0206 02/07/17 0206 X-Rays, CTs and MRIs Chest X-ray reviewed : No acute or active disease is seen in the two-view chest. Cause of chest pain is not identified. EKG : No ST depression or elevation Assessment & Plan 61-year-old gentleman presenting with recurrent unstable anginal symptoms three days out following stent placement to the LAD and ramus intermedius 3 days ago. 1. Non-ST elevation myocardial infarction, present on admission, active. -patient had two drug-eluting stent placements 3 days ago. -elevated troponin x3 on admission. No acute ST segment depression or elevation on EKG -Cardiology was consulted and decided to do a diagnostic coronary angiography this afternoon. -Patient was found to have 95% and 70% stenosis of the right posterior descending branch and this was successfully treated with two drug-eluting stents. -Medical management per cardiology. Plavix was changed to Effient per Card. -Continue Heparin drip -Nitro, O2, Morphine as needed 2. Hypertensive Urgency, present on admission, improved. - Per history, patient presented to the ED with systolic BP >200. - Patient is not on any BP med at home. - Continue Metoprolol 25mg BID. - Will consider adding Lisinopril 20mg tomorrow. - Continue to monitor vital signs. 3. History of CAD, chronic. - Continue ASA - Will start Atorvastatin 80mg tomorrow. - A1c 5.7, TSH normal. - Mildly elevated LDL and Triglyceride. 4. Hepatitis C, chronic. Stable. - Patient was treated in the past and apparently cured. Dispo: anticipate discharge when he is cleared by cardio. Pain Evaluation: Adequate Pain Control VTE Prophylaxis: Other (Anticoagulation with heparin drip ) VTE Mechanical Devices: Intermittant Pneumatic CD Resuscitation Status: CPR: Attempt Resuscitation Attending Statement The patient was seen and examined together with Dr. Calloway on 02/07/2017 and I agree with the history, exam and plan as outlined in the note above. . Ramiro Calloway DO Feb 07, 2017 19:23 Giuseppe Serna MD Feb 08, 2017 15:16 nitroglycerine Heparin drip per protocol. Troponin trend. 1st set positive ( 0.06) . Elevated topspin is likely due to recent cardiac catheterization and stent placement ( 2 days ago) . His chest pain may be provoked by uncontrolled hypertension with systolic of 200 on presentation in-stent stenosis is less likely . Patient sated he is complaint with both Aspirin and Plavix . A1c, TSH, Lipid profile Cardiology consulted for further recommendation Pain Evaluation: Adequate Pain Control VTE Prophylaxis: Other (Anticoagulation with heparin drip ) VTE Mechanical Devices: Intermittant Pneumatic CD Resuscitation Status: CPR: Attempt Resuscitation Ramiro Calloway DO Feb 07, 2017 19:23
[2017-02-07] MEDS: 0.9% Sodium Chloride 1,000 ML IV SCH (19:52)
[2017-02-08 00:05] VITALS: BP 146/81; PULSE 50; RESP 16; O2SAT 96
[2017-02-08] MEDS: 0.9% Sodium Chloride 1,000 ML IV SCH (00:05)
[2017-02-08 03:38] VITALS: BP 166/79; PULSE 48; RESP 16; O2SAT 99
[2017-02-08] MEDS: Sodium Chloride LOK Flush 10 mL Syringe IVFLUSH SCH ×2 (05:27→07:34)
[2017-02-08 06:00] VITALS: PULSE 58
--- NOTE | 2017-02-08 06:10 | NUR ---
Groin Site/Tele Patient's right groin site soft, bruised; tender to palpation. Patient states tylenol had only worked for "about half an hour"; provider paged and new order obtained for roxicodone. Patient reported good pain relief with roxicodone and was able to sleep. Tele: Sinus rhythm/sinus bradycardia. Continue to monitor.
[2017-02-08 06:13] LABS: Mean Corpuscular Hemoglobin 30.6 pg (27.0-35.0); Mean Corpuscular Volume 90.1 fL (81-100)
[2017-02-08 06:57] LABS: TROPONIN T 0.113 ug/L (0.0-0.011)
[2017-02-08 07:28] VITALS: BP 178/82; PULSE 67; RESP 18; O2SAT 100
[2017-02-08 09:31] VITALS: PULSE 54
[2017-02-08] MEDS ORDERED: METO25TA6 PO (11:06)
[2017-02-08] MEDS ORDERED: PRAS10TA5 PO (11:06)
[2017-02-08] MEDS ORDERED: ATOR40TA69 PO (11:06)
[2017-02-08] MEDS ORDERED: LISI-567 PO (11:06)
--- NOTE | 2017-02-08 11:11 | PCM.DIMED ---
Ramiro Calloway DO 02/08/17 1108: Discharge Instructions Date of Service Feb 08, 2017 Dates of Hospitalization Feb 06, 2017 at 19:58 Discharge Diagnosis Discharge Diagnosis 1. Non-ST elevation myocardial infarction, present on admission, active. 2. Hypertensive Urgency, present on admission, likely acute on chronic, improved. 3. History of CAD, chronic, stable. 4. Hepatitis C, chronic. Stable. Medication Instructions - The overnight stocker switched the Plavix to Effient. Please stop taking the Plavix and get a prescription for Effient. - Take the Metoprolol, Lisinopril, and Atorvastatin as directed. Diet Heart Healthy Activity Limited until seen by PCP Call your provider Fever or Chills, Shortness of breath, Bleeding, Chest pain, Vomitting, Weakness (unilateral) Patient Instructions - You have high blood pressure and thus we added some medications to help control your blood pressure. Please take as directed. - You will need to have a blood test called complete metabolic panel in 1 week to make sure that your kidney and liver are doing well on the medications. - Go to the ER if you develop chest pain, shortness of breath, nausea, vomiting , or weakness. - Follow up with your PCP in 1 week. - You have an appointment with cardiology on 02/19. Please follow up as scheduled. Follow-up Provider: Deonte Allen MD Follow-up with PCP in: 1 week Provider: Rk Dimas MD Follow-up in: 2 weeks Cardiac Rehab: 2 weeks Giuseppe Serna MD 02/08/17 1517: Discharge Instructions Attending's Statement The patient was seen and examined together with Dr. Calloway on 02/07/2017 and I agree with the history, exam and plan as outlined in the note above. . Ramiro Calloway DO Feb 08, 2017 11:08 Giuseppe Serna MD Feb 08, 2017 15:17
--- NOTE | 2017-02-08 11:20 | PCM.DC.MED ---
Discharge Summary Date of Service Feb 08, 2017 Dates of Hospitalization Date of Hospital Admission Feb 06, 2017 at 19:58 Date of Discharge: Feb 08, 2017 Providers: Admitting Physician: Brandon Mcpherson MD Primary Care Physician: Deonte Allen MD Attending Physician: Brandon Mcpherson MD Diagnosis at Time of Discharge Diagnosis at Time of Discharge 1. Non-ST elevation myocardial infarction, present on admission, active. 2. Hypertensive Urgency, present on admission, likely acute on chronic, improved. 3. History of CAD, chronic, stable. 4. Hepatitis C, chronic. Stable. Consultations Cardiology (Dr. Piedra and Dr. Loyd) Procedures XRay, CTs & MRIs Chest X-ray reviewed : No acute or active disease is seen in the two-view chest. Cause of chest pain is not identified. ECG 12 Lead EKG : No ST depression or elevation Invasive Procedures Cardiac catheterization on 02/07. Brief History Per Cardiology Consult: "The patient has been aware of exertional burning precordial chest discomfort, which he assumed was pulmonary related over about the past month. His primary care provider ordered an exercise stress study, which was significantly abnormal , and he was referred to Dr. Bai a week ago. He was admitted on February 03 for diagnostic coronary angiography, which demonstrated evidence of significant disease involving his proximal LAD, involving also a ramus intermedius vessel, with diffuse atherosclerosis in his right coronary artery, with about an 80% PDA lesion noted as well. The patient underwent stent placement with two drug- coated stents. The proximal LAD was stented with a 2.75 x 26 mm drug-eluting stent, and the ramus intermedius vessel was stented with a 2.25 x 18 mm drug- eluting stent. Patient was discharged home on aspirin and Plavix but was not discharged home on any other cardiac medications including statins. Early morning at around 2:30, he was awakened by symptoms of burning precordial chest discomfort, which gradually resolved but recurred off and on throughout the day most of the time at rest. On one occasion, he took a sublingual nitroglycerin, which was successful in alleviating the discomfort. He contacted our office yesterday late afternoon and was advised to present to the emergency department for evaluation. In the emergency department his blood work was notable for a troponin level of 0.065. His ECG showed no ST-segment changes of any significance, and the patient was admitted to the hospital and started up on nitrates, aspirin and intravenous heparin, and was kept n.p.o. for possible cardiac catheterization. Today, this patient states that he has been feeling generally well. He relates that he has been aware of moderate hypertension over the years, as he has visited his physicians with blood pressures ranging between 130 to 160 systolic , though he has not been treated. His cholesterol has not been checked for many years. He does not have a family history of chronic ischemic heart disease , and quit smoking in the late ." Hospital Course 61-year-old gentleman presenting with recurrent unstable anginal symptoms three days out following stent placement to the LAD and ramus intermedius 3 days ago. 1. Non-ST elevation myocardial infarction, present on admission, active. -patient had two drug-eluting stent placements on 02/03 prior to admission. -elevated troponin x3 on admission. No acute ST segment depression or elevation on EKG. -Cardiology was consulted and decided to do a diagnostic coronary angiography on 02/07. Patient was found to have 95% and 70% stenosis of the right posterior descending branch and this was successfully treated with two drug-eluting stents. -Medical management per cardiology. -Plavix was changed to Effient per Card. Plan to continue Effient at discharge. However, [employer] [facility] pharmacy called and patient would have to pay over $400 copay for the Effient. Recommended the patient to resume the Plavix instead until he sees cardiology. -Continue Nitroglycerine PRN -Troponin was elevated (0.113) at discharge, likely due to transient blood flow impairment of the artery or its side branch. 2. Hypertensive Urgency, present on admission, improved. - Per history, patient presented to the ED with systolic BP >200. - Patient is not on any BP med at home. - Continue Metoprolol 25mg BID. - Start Lisinopril 20mg daily. - Check CMP in 1 week. 3. History of CAD, chronic. - Continue ASA - Start Atorvastatin 80mg. - A1c 5.7, TSH normal. - Mildly elevated LDL and Triglyceride. 4. Hepatitis C, chronic. Stable. - Patient was treated in the past and apparently cured. Dispo: anticipate discharge when he is cleared by cardio. Exam Vital Signs (Last) Date Time Temp Pulse Resp B/P Pulse Ox O2 Delivery O2 Flow Rate FiO2 02/08/17 09:31 54 02/08/17 07:28 36.6 18 178/82 100 Room Air Exam General: Well-developed, well-nourished, pleasant, in no acute distress HEENT: Atraumatic, anicteric sclerae, mucosa moist Neck: Supple, no JVD noted Resp: Clear to auscultation bilaterally. No wheezes, rales, or rhonchi noted CV: Regular rate and rhythm, no murmurs Abdomen: soft, nondistended, nontender to palpation, no organomegaly, normoactive bowel sounds Skin: ecchymosis noted on the right femoral assess, no discharge or bleeding. Extremities: warm, no edema/clubbing/cynosis Neuro: Alert and oriented, moving all extremities spontaneously, sensation grossly intact. Test 02/06/17 17:23 02/07/17 02:06 02/07/17 08:00 02/08/17 05:37 Hemoglobin A1c 5.7% (4.8-5.6) Magnesium Level 2.2mg/dL (1.6-2.6) Total Bilirubin 0.5mg/dL (0.0-1.2) Aspartate Amino Transf (AST/SGOT) 39U/L (0-50) Alanine Aminotransferase (ALT/SGPT) 36U/L (0-44) Alkaline Phosphatase 78U/L (25-160) Total Protein 7.2g/dL (6.4-8.4) Albumin 4.4g/dL (3.4-5.0) Thyroid Stimulating Hormone (TSH) 4.320uIU/mL (0.450-4.500) Neutrophils (%) (Auto) 50.6% (40-74) Lymphocytes (%) (Auto) 30.9% (14-46) Monocytes (%) (Auto) 11.3% (4-12) Eosinophils (%) (Auto) 6.3% (0-5) Basophils (%) (Auto) 0.7% (0-3) Total Creatine Kinase 136U/L (21-232) Creatine Kinase MB 4.1ng/mL (0.0-10.4) Creatine Kinase MB % % (0.0-5.0) Triglycerides Level 207mg/dL (0-149) Cholesterol Level 191mg/dL (100-199) LDL Cholesterol, Calculated 109.600mg/dL (0-99) VLDL Cholesterol 41.400mg/dL HDL Cholesterol 40mg/dL (>39) Cholesterol/HDL Ratio 4.78 (0.0-4.4) Activated Partial Thromboplast Time 62.3sec (22.8-33.0) White Blood Count 5.8th/mm3 (3.8-10.1) Red Blood Count 5.27mil/mm3 (4.40-5.80) Hemoglobin 16.1g/dL (13.8-17.2) Hematocrit 47.5% (41.0-50.0) Mean Corpuscular Volume 90.1fL (81-100) Mean Corpuscular Hemoglobin 30.6pg (27.0-35.0) Mean Corpuscular Hemoglobin Concent 33.9% (32.0-37.0) Red Cell Distribution Width 13.2% (12.3-15.4) Platelet Count 142bil/L (150-400) Sodium Level 141mEq/L (134-144) Potassium Level 4.2mEq/L (3.5-5.2) Chloride Level 105mEq/L (97-108) Carbon Dioxide Level 20mmol/L (18-29) Blood Urea Nitrogen 15mg/dL (8-27) Creatinine 0.73mg/dL (0.76-1.27) Estimat Glomerular Filtration Rate 115mL/min (>59) Glucose Level 98mg/dL (60-99) Calcium Level 8.7mg/dL (8.5-10.1) Troponin T 0.113ug/L (0.0-0.011) Discharge Medications Discharge Medications Aspirin (Aspirin) 325 Mg Tablet 162.5 MG PO DAILY (Reported) Atorvastatin Calcium (Atorvastatin Calcium) 40 Mg Tablet 80 MG PO HS Prescribed by: WES MARCIAL DO Lisinopril (Lisinopril) 20 Mg Tablet 20 MG PO DAILY Prescribed by: WES MARCIAL DO Metoprolol Tartrate (Metoprolol Tartrate) 25 Mg Tablet 25 MG PO BID Prescribed by: WES MARCIAL DO Multivit with Calcium,Iron,Min (Therapeutic M) 1 Each Tablet 1 EACH PO DAILY ( Reported) Prasugrel HCl (Effient) 10 Mg Tablet 10 MG PO DAILY Prescribed by: NGOCHANH H MARCIAL, DO As needed Carboxymethylcellulose Sodium (Refresh Tears) 15 Ml Drops 1 APPLIC OP PRN PRN PRN DRY EYES (Reported) Hydrocortisone (Hydrocortisone) 1 % Cream..g. 1 APPLIC TOPICAL BID PRN PRN For Itching (Reported) Ibuprofen (Ibuprofen) 200 Mg Capsule 400 MG PO DAILY PRN PRN Headache (Reported ) USES SPARINGLY Nitroglycerin SL (Nitrostat) 0.4 Mg Tab.subl 0.4 MG SL Q5MIN PRN PRN For Chest Pain (Reported) Sildenafil Citrate (Sildenafil) 20 Mg Tablet 20 MG PO DIRECTED PRN PRN for sexual activity (Reported) Additional med instructions - The electrical power station technician switched the Plavix to Effient. Please stop taking the Plavix and get a prescription for Effient. - Take the Metoprolol, Lisinopril, and Atorvastatin as directed. Followup Plan Disposition: Home Discharge Diet: Heart Healthy Discharge Activity: Limited until seen by PCP Patient Instructions - You have high blood pressure and thus we added some medications to help control your blood pressure. Please take as directed. - You will need to have a blood test called complete metabolic panel in 1 week to make sure that your kidney and liver are doing well on the medications. - Go to the ER if you develop chest pain, shortness of breath, nausea, vomiting , or weakness. - Follow up with your PCP in 1 week. - You have an appointment with cardiology on 02/19. Please follow up as scheduled. Follow-up Provider: Deonte Allen MD Follow-up with PCP in: 1 week Provider: Rk Dimas MD Follow-up in: 2 weeks Cardiac Rehab: 2 weeks Time spent Greater than 30 minutes was spent in preparation of discharge with greater than 50% of that time dedicated to patient counseling and coordination of care. . Attending Statement The patient was seen and examined together with Dr. Marcial on 02/08/2017 and I agree with the history, exam and plan as outlined in the note above. . copies to: Deonte Allen MD, Ngochanh H DO Feb 08, 2017 11:20 Giuseppe Serna MD Feb 08, 2017 17:15
--- NOTE | 2017-02-08 12:02 | NUR ---
Social Work: Screen D: Per EMR review, pt is a 61 year old male admitted for Non Stemi, Post Stenting. Pt is [employer] insurance. PCP is Deonte Allen MD. No NOK listed. Readmit score is low, 0/8. Advanced directives not completed- information provided to pt. Pt had heart cath procedure on 02/07. Pt is ambulating I during admission. Pt lives at home, alone and is I with ADLS. No sw needs or barriers identified at this time. Pt discussed in am rounds. Pt is medically stable for discharge home with no needs. A: Pt who is I at baseline. P: Pt to discharge home today via POV. DEBO Dunaway
--- NOTE | 2017-02-08 12:07 | NUR ---
Discharge The pt left the unit at 1200 with all his belongings and his packet of discharge paperwork. In his packet was info on his stay, his heart catheterization, educational materials, new scripts and follow up appointment information. The pt verbalized understanding of all educational materials presented. The pt left the unit to a private vehicle, where he will be transported home. He walked off the unit with vitals WNL (slightly HTN) and A&Ox3.
== END 2017-02-08 12:00 | disposition home or self-care (01) | DRG 247 ==
LOC: SED 16:43 → PCC 19:58
PROVIDERS: ADMIT Internal Medicine; ATTEND Internal Medicine
PROC: 027035Z Dilation of Coronary Artery, One Artery with Two Drug-eluting Intraluminal Devices, Percutaneous Approach (ICD-10-PCS; principal; 2017-02-07)
PROC: 4A023N7 Measurement of Cardiac Sampling and Pressure, Left Heart, Percutaneous Approach (ICD-10-PCS; 2017-02-07)
PROC: B2111ZZ Fluoroscopy of Multiple Coronary Arteries using Low Osmolar Contrast (ICD-10-PCS; 2017-02-07)
PROC: 4A033BC Measurement of Arterial Pressure, Coronary, Percutaneous Approach (ICD-10-PCS; 2017-02-07)
DX: I21.4 Non-ST elevation (NSTEMI) myocardial infarction (principal); I16.0 Hypertensive urgency; I10 Essential (primary) hypertension; I25.10 Atherosclerotic heart disease of native coronary artery without angina pectoris; I25.2 Old myocardial infarction; Z87.891 Personal history of nicotine dependence; Z95.5 Presence of coronary angioplasty implant and graft; Z79.02 Long term (current) use of antithrombotics/antiplatelets; Z79.82 Long term (current) use of aspirin; Z86.19 Personal history of other infectious and parasitic diseases

== ENCOUNTER 2017-02-11 19:14 | Observation (INO) | payer OTHER ==
[~2017-02-11] VITALS: Ht 177.8 cm; Wt 74.7 kg
[~2017-02-11 19:14] MED LIST changes: +ATOR40TA69 PO; +CARB15DR74 OP; +HYDR28.484 TOPICAL; +LISI-567 PO; +METO25TA6 PO; +MULT-140 PO; -MULT-36 PO; +PRAS10TA5 PO; +SILD20TA14 PO
[2017-02-11 19:16] VITALS: BP 139/88; PULSE 58; RESP 16; O2SAT 98
--- NOTE | 2017-02-11 19:32 | ED.REPORT ---
HPI-Chest Pain 40 and Over Date of Service Feb 11, 2017 ED Provider: Izabel Sam MD A 61 year old male with a history of KS, hepatitis C and liver disease presents to the ED complaining of intermittent chest pain that began last week. Patient describes his pain as a pressure. Associated symptoms include diaphoresis and SOB. Patient was recently seen in the ED on 02/06 for similar chest pain and was admitted to the hospital. He was discharged on 02/08 in good condition with instructions to take Effient. Patient had stents x4 placed in the past month after he failed a stress test. His initial 2 stents were placed on 02/03 and had 2 additional stents placed after being seeing in the ED on 02/06. He recently stopped taking Plavix. Patient denies nausea or vomiting. Nursing Notes Stated Complaint: CHEST PAIN Chief Complaint: Chest Pain Nursing Notes Reviewed: Yes Allergies: Coded Allergies: Penicillins (Verified Allergy, Unknown, unknown, 02/11/17) was told had a reaction as a child Scheduled Aspirin (Aspirin) 325 Mg Tablet 162.5 MG PO DAILY Atorvastatin Calcium (Atorvastatin Calcium) 40 Mg Tablet 80 MG PO HS Lisinopril (Lisinopril) 20 Mg Tablet 20 MG PO DAILY Metoprolol Tartrate (Metoprolol Tartrate) 25 Mg Tablet 25 MG PO BID Multivit with Calcium,Iron,Min (Therapeutic M) 1 Each Tablet 1 EACH PO DAILY Prasugrel HCl (Effient) 10 Mg Tablet 10 MG PO DAILY Scheduled PRN Carboxymethylcellulose Sodium (Refresh Tears) 15 Ml Drops 1 APPLIC OP PRN PRN PRN DRY EYES Hydrocortisone (Hydrocortisone) 1 % Cream..g. 1 APPLIC TOPICAL BID PRN PRN For Itching Ibuprofen (Ibuprofen) 200 Mg Capsule 400 MG PO DAILY PRN PRN Headache USES SPARINGLY Nitroglycerin SL (Nitrostat) 0.4 Mg Tab.subl 0.4 MG SL Q5MIN PRN PRN For Chest Pain Sildenafil Citrate (Sildenafil) 20 Mg Tablet 20 MG PO DIRECTED PRN PRN for sexual activity General Time Seen by MD: 19:31 Chief Complaint Chest pain Hx Obtained From: Patient Arrived By: Walk-in Sudden in Onset?: No Onset Occurred: 1 week ago Symptom Duration: Intermittent Location: : Chest left: Chest right Quality: Pressure Radiation: : Does not radiate Migration/Movement: Reports: None Severity: Current: Mild Severity: Maximum: Moderate Associated with: Reports: Diaphoresis, Shortness of Breath, Denies: Nausea, Vomiting Pertinent Negative: Pt denies other symptoms Recent Healthcare: Recent doctor visit, Recent hospitalization Risk Factors )( CAD Risk Stratification Risk factors reviewed )( TAD Risk Stratification Risk factors reviewed )( PE Risk Stratification Risk factors reviewed Past Medical History Past Medical History Intermittent episodes of tachycardia Hepatitis C Liver disease Left spermatocele Small [place] Past Surgical History Tonsillectomy Spermatocelectomy Cardiac stents x4 Smoking History Former Smoker Social History Other Social History: Good social support, Local resident Ambulatory Status Independent Review of Systems Constitutional: Denies: Chills, Fever Respiratory: Reports: Shortness of breath Cardiovascular: Reports: Chest pain (Chest pressure ) GI: Denies: Abdominal pain, Nausea, Vomiting Skin: Reports Diaphoresis Neurologic: Denies: Change LOC Complete sys rev & neg: except as marked. Physical Exam Initial Vital Signs Vital Signs (First) Date Time Temp Pulse Resp B/P Pulse Ox O2 Delivery O2 Flow Rate FiO2 02/11/17 19:16 36.8 58 16 139/88 98 Initial VS: Reviewed Head / Eyes: Atraumatic, Normocephalic, PERRL Extremities: Vascular intact, Neuro intact, No swelling, No tenderness Skin: Warm, Dry, No cyanosis Neurologic: Alert, Oriented, Nonfocal Psychiatric: Mood/affect normal, Behavior normal, Normal thought content General/Constitutional: Awake, Alert, No acute distress Respiratory / Chest: Atraumatic, Breath sounds NL, Breath sounds = bilat, No respiratory distress Abdomen: Atraumatic, Soft, Non-tender, No distention Interpretation & Diagnostics Lab Results Interpretation Result Diagram: 02/11/17193902/11/171939 Test 02/11/17 19:40 02/11/17 19:49 White Blood Count 5.2th/mm3 (3.8-10.1) Red Blood Count 5.35mil/mm3 (4.40-5.80) Hemoglobin 16.2g/dL (13.8-17.2) Hematocrit 47.9% (41.0-50.0) Mean Corpuscular Volume 89.5fL (81-100) Mean Corpuscular Hemoglobin 30.3pg (27.0-35.0) Mean Corpuscular Hemoglobin Concent 33.8% (32.0-37.0) Red Cell Distribution Width 13.2% (12.3-15.4) Platelet Count 179bil/L (150-400) Neutrophils (%) (Auto) 57.5% (40-74) Lymphocytes (%) (Auto) 25.1% (14-46) Monocytes (%) (Auto) 13.1% (4-12) Eosinophils (%) (Auto) 3.3% (0-5) Basophils (%) (Auto) 0.8% (0-3) Sodium Level 140mEq/L (134-144) Potassium Level 4.3mEq/L (3.5-5.2) Chloride Level 102mEq/L (97-108) Carbon Dioxide Level 24mmol/L (18-29) Blood Urea Nitrogen 20mg/dL (8-27) Creatinine 0.85mg/dL (0.76-1.27) Estimat Glomerular Filtration Rate 97mL/min (>59) Glucose Level 107mg/dL (60-99) Calcium Level 9.0mg/dL (8.5-10.1) Magnesium Level 2.2mg/dL (1.6-2.6) Total Bilirubin 0.6mg/dL (0.0-1.2) Aspartate Amino Transf (AST/SGOT) 45U/L (0-50) Alanine Aminotransferase (ALT/SGPT) 55U/L (0-44) Alkaline Phosphatase 77U/L (25-160) Troponin T 0.091ug/L (0.0-0.011) Pro-B-Type Natriuretic Peptide 55.60pg/mL (0-210) Total Protein 7.3g/dL (6.4-8.4) Albumin 4.4g/dL (3.4-5.0) D-Dimer < 0.5mg/L (<0.50) ECG Interpretation ECG Interpretation: Sinus bradycardia Rate [address] evelation T wave inversion AVR Time: 19:35 Interpreted by: ED physician Normal ECG Interpretation: No change from prior ECGs (02/07/17) X-Ray Chest Interpretation Chest Xray Interpretation: IMPRESSION: No acute cardiopulmonary disease. Dictated by: Curtis Tariq M.D. on 02/11/2017 at 20:05 Interpretation / Wet Read by: Interpret - Radiologist Re-Eval/Medical Decision Med Decision/Clinical Course 61-year-old male with extensive cardiac history who had stenting on February 03 and then more stenting on February 07 here with chest pain. Differential diagnosis includes but is not limited to ST elevation KS versus non-ST elevation KS versus PE versus pleural effusion. Patient's d-dimer was negative, effectively ruling out PE. His EKG did not show any ST elevation, and at this time, I have not activated the cardiac laboratory aide. His chest x-ray was unremarkable. His troponin was positive, however, it was lower than his last discharge. Given his risk factors, I have admitted him to the hospitalist service for formal ACS rule out, and discussed with , on-call cardiology who will see the patient in the morning. Patient is aware and amenable to plan. Time of Eval: 20:35 Patient Status: Condition improved Re-Evaluation/Progress Note: Patient is rechecked. He is informed of his EKG results, X-ray results and concerning troponin results. All of the patient's questions are adressed. He understands and agrees with the treatment plan to admit. Consultation #1: Referral / Consult Name: Idalia Melton MD Consulted With: Hospitalist Call Returned at: 20:55 Plastic Dolls Mold Filler: Will see patient, Agrees with eval, Agrees with plan, Accepts admit Consultation #2: Referral / Consult Name: Gladys Pittman MD Consulted With: Cardiology Call Returned at: 21:02 [employer] Filler: Will see patient, Agrees with eval, Agrees with plan Note: Discussed pt conditon. Agrees to consult. Recommends one time therapeutic Flomax. Counseled Regarding: Diagnosis, Lab results, Need for admission Discharge & Departure Primary Impression: Chest pain Chest pain type: unspecified Qualified Code: R07.9 - Chest pain, unspecified Additional Impression: Elevated troponin Disposition: ADMITTED TO HOSPITAL Discharge Condition All VS Reviewed: Yes Condition: Stable Referrals: Deonte Allen MD (PCP) [place] Attestation Portions of this note were transcribed by Geno Harmon. IDr. Sam personally performed the history, physical exam and medical decision-making; I reviewed and confirmed the accuracy of the information in the transcribed note. Signed by: Pita Mcdonald, 02/11/17 [id number]. copies to: Deonte Allen MD, Rebecca A MD Feb 11, 2017 19:32 GENO HARMON Feb 11, 2017 19:39
[2017-02-11 19:55] LABS: BASOPHILS % (AUTO) 0.8 % (0-3); EOSINOPHILS % (AUTO) 3.3 % (0-5); MONOCYTES % (AUTO) 13.1 % (4-12); Mean Corpuscular Hemoglobin 30.3 pg (27.0-35.0); Mean Corpuscular Volume 89.5 fL (81-100); NEUTROPHILS % (AUTO) 57.5 % (40-74); Platelet Count 179 bil/L (150-400)
--- NOTE | 2017-02-11 20:06 | DRSVH ---
PROCEDURE: X-RAY CHEST ONE VIEW, PORTABLE ([id number]) INDICATIONS: 61 year-old male with left chest pain. TECHNIQUE: One view of the chest was acquired. COMPARISON: [facility], CR, XR CHEST 2VW, 02/06/2017, 17:52. [facility], CR, XR CHEST 1VW (PORTABLE), 01/20/2017, 22:18. [facility], CR, CHEST 2VW, 01/15/2017, 1:02 PM. FINDINGS: Surgical changes and devices: None. Lungs and pleura: No pleural effusions or pneumothorax. Lungs are clear. Mediastinum: Mediastinal contours appear normal. Heart size is normal. Bones and chest wall: No suspicious bony lesions. Overlying soft tissues appear unremarkable. IMPRESSION: No acute cardiopulmonary disease. Dictated by: Curtis Tariq M.D. on 02/11/2017 at 20:05 Approved by: Curtis Tariq M.D. on 02/11/2017 at 20:05
[2017-02-11 20:23] LABS: TROPONIN T 0.091 ug/L (0.0-0.011)
[2017-02-11 20:24] LABS: Magnesium 2.2 mg/dL (1.6-2.6)
[2017-02-11 21:11] VITALS: BP 138/96; PULSE 57; RESP 11; O2SAT 96
[2017-02-11] MEDS ORDERED: Alum-Mag Hydrox-Simeth 30 mL Suspension PO PRN (21:25)
[2017-02-11] MEDS ORDERED: Ondansetron 2 mg/mL 2 mL Inj IVPUSH PRN (21:25)
[2017-02-11 22:58] VITALS: BP 145/89; PULSE 60; RESP 18; O2SAT 97
[2017-02-11 23:03] VITALS: BP 166/88; PULSE 60; RESP 17; O2SAT 97
[2017-02-11 23:20] VITALS: PULSE 72
[2017-02-11 23:24] LABS: APPEARANCE,URINE CLEAR (CLEAR,HAZY); COLOR,URINE YELLOW (YELLOW); OCCULT BLOOD,URINE NEGATIVE (NEGATIVE); UROBILINOGEN,URINE NORMAL (NORMAL)
[2017-02-12 04:50] VITALS: BP 124/77; PULSE 59; RESP 16; O2SAT 94
--- NOTE | 2017-02-12 05:45 | PCM.HPMED ---
Subjective Date of Service Feb 11, 2017 Primary Provider: Admitting Physician: Idalia Melton MD Primary Care Physician: Deonte Allen MD Attending Physician: Idalia Melton MD Admit Status: From the Emergency Department Chief Complaint: Chest Pain History of Present Illness: 61-year-old male with past medical history of possible UT, hepatitis C, and intermittent tachycardia presents with one-week intermittent chest discomfort. On January 28 patient had abnormal treadmill exercise tolerance test. On February 03 he received cardiac catheterization with stent placement in the proximal left anterior descending and the ramus intermedius. On February 06 patient returned to the emergency department with complaints of chest pain that awoke him from sleep. He returned to the emergency department and had subsequent percutaneous intervention with placement of tandem drug-eluting stents in right posterior descending artery. After each stent placement he reports feeling well for a day or 2 followed by continued intermittent chest pain with associated diaphoresis and shortness of breath. After his most recent heart catheterization he was discharged on Effient however was unable to fill this prescription and did not take his Plavix as previously directed to do for 2 days. He is very concerned about a blood clot forming on the stents. Patient reports having mild headache which he relates to musculoskeletal neck pain and discomfort. She had one episode of Whipple's in his vision last night that he postulates is medication related. In the emergency department patient has had some sinus bradycardia down to 57 BPM, he has been afebrile with some episodes of hypertension up to 166/88 Review of Systems: A comprehensive review of systems was conducted with the patient and found to be negative except as above in the History of Present Illness. Allergies Coded Allergies: Penicillins (Verified Allergy, Unknown, unknown, 02/11/17) was told had a reaction as a child Home Medications 1. Aspirin 325 mg 1/2 tablet by mouth daily 2. Atorvastatin 80 mg by mouth daily at bedtime 3. Refresh Tears 4. lisinopril 20 mg by mouth daily 5. Metoprolol tartrate 25 mg by mouth twice a day 6. Multivitamin by mouth daily 7. Nitrostat 0.4 mg sublingual every 5 minutes when necessary chest pain 8. Plavix 75 mg by mouth daily patient has been taking this medication instead of Effient because he was unable to get it from the pharmacy 9. Effient 10 mg by mouth daily patient has not been taking this medication however it was prescribed to him and recommended by cardiology 10. Sildenafil 20 mg by mouth when necessary sexual activity PMH 1. End STEMI 2. Hepatitis C treated in May 2016 3. Intermittent tachycardia 4. Left spermatocele Surgical History 1. Tonsillectomy 2. Spermatocelectomy 3. Cardiac stents 4 Family History Mother with lung cancer Father with melanoma Sister with breast cancer Aunt with unknown cancer Social History Hx Alcohol Use: Yes (A beer or 2 daily) Alcoholic Drinks Per Day: 1 Hx Substance Use: No (REMOTE HX OF MARIJUANA and IV drug use a few times in 20' s) Smoking Status: Former Smoker (2-3 packs per day quit 1988) Years of Smokin Living Arrangement: Alone Exam Vital Signs Vital Sign - Last Date Time Temp Pulse Resp B/P Pulse Ox O2 Delivery O2 Flow Rate FiO2 02/11/17 23:20 72 02/11/17 23:03 17 166/88 97 Room Air 02/11/17 22:58 36.7 Exam General: No acute distress, well-developed, well-nourished, appropriately interactive HEENT: Normocephalic, atraumatic. External ears without defect. Pupils equal, round, and reactive to light and accommodation. Anicteric sclerae, moist conjunctivae, and no lid lag. Oropharynx free of erythema and cobble stoning with moist mucosa. Neck: Supple with full range of motion. No lymphadenopathy or thyromegaly. Cardiovascular: Regular rate and rhythm with no murmurs, rubs, or gallops appreciated Pulmonary: Clear to auscultation bilaterally with no crackles, wheezes, or rhonchi. Normal respiratory effort with no use of accessory muscles. Abdomen: Bowel tones present. Soft, nontender, nondistended. No hepatosplenomegaly or masses appreciated. Extremities: No clubbing, cyanosis, edema, or lymphadenopathy appreciated. Skin: Normal temperature, turgor, and texture; no rash, ulcers, or subcutaneous nodules appreciated. Neurological: Cranial nerves grossly intact. Normal muscle strength, tone, and bulk. No known gait impairment. Psychiatric: Normal mood and affect. Alert and oriented to person, place, and time. Lab and Diagnostics Labs Troponin 0.091 decreased from 0.113 on 02/08/2017 Result Diagram: 02/11/17193902/11/171939 X-Rays, CTs and MRIs PROCEDURE: X-RAY CHEST ONE VIEW, PORTABLE ([id number]) IMPRESSION: No acute cardiopulmonary disease. Dictated by: Curtis Tariq M.D. on 02/11/2017 at 20:05 12-lead ECG Sinus bradycardia Rate [address] evelation T wave inversion AVR Time: 19:35 Interpreted by: ED physician Normal ECG Interpretation: No change from prior ECGs (02/07/17) Assessment & Plan 61-year-old male with past medical history of possible UT, hepatitis C, and intermittent tachycardia presents with one-week intermittent chest discomfort. Status post stent placement 2 02/03/2017, 2 02/07/2017 1. Persistent chest pain, on admission, subacute - In the emergency department case was discussed with cardiology who recommended therapeutic dose of Lovenox and return to Effient rather than Plavix. - Recommend day hospitalist contact cardiology for consultation this a.m. - Continue atorvastatin, metoprolol, lisinopril, aspirin as previously prescribed - Nitroglycerin sublingual when necessary for chest pain - Effient in the morning, discontinue Plavix - D-dimer negative - Troponin elevated 0.091 repeat in a.m. 2. Hypertension, present on admission, subacute - Continue metoprolol and lisinopril - Continue to monitor with every 4 hours vital signs Acetaminophen for mild pain when necessary. Bowel regimen Senna and MiraLAX PRN. Zofran when necessary for nausea and vomiting. DVT prophylaxis with therapeutic dose of sub cutaneous Lovenox, on Effient Patient is admitted under observation status with expected length of stay less than 2 midnights due to severity of presenting symptoms, risk of adverse event, and complexity of treatment plan. Pain Evaluation: Adequate Pain Control GI Prophylaxis: Not indicated VTE Prophylaxis: Sub-Q Enoxaparin VTE Mechanical Devices: Intermittant Pneumatic CD Resuscitation Status: CPR: Attempt Resuscitation Attending Statement Pt seen and examined by myself and agree with above plan. copies to: Deonte Allen MD, Erika R DO Feb 12, 2017 00:04 Idalia Melton MD Feb 12, 2017 06:37
--- NOTE | 2017-02-12 06:03 | NUR ---
Admit Pt has been admitted to from ED to [facility] room 3011. Pt denies chest pain upon arrival to the floor. Telemetry monitoring shows no abnormal rhythm or ektopy. HS meds administered as ordered. Hourly rounding done, call light within reach. Pt has slept most of the night.
[2017-02-12 07:50] LABS: BASOPHILS % (AUTO) 0.8 % (0-3); EOSINOPHILS % (AUTO) 4.4 % (0-5); Mean Corpuscular Hemoglobin 30.7 pg (27.0-35.0); Mean Corpuscular Volume 90.3 fL (81-100); NEUTROPHILS % (AUTO) 55.3 % (40-74); Platelet Count 171 bil/L (150-400)
[2017-02-12 08:29] VITALS: BP 134/69; PULSE 62; RESP 18; O2SAT 97
[2017-02-12 08:39] LABS: TROPONIN T 0.081 ug/L (0.0-0.011)
[2017-02-12 10:03] LABS: INR 1.06 ratio
--- NOTE | 2017-02-12 10:21 | NUR ---
Social Work-screening/readiness for discharge: Data:EMR reviewed. Pt is a 61 y/o male who was admitted on 02/11/17 for chest pain resolved per H&P. Pt's insurance is and PCP is Deonte Allen MD. EMR reviewed. SW met with pt at bedside to discuss discharge planning, SW role explained. Pt is alert and oriented x3. Pt resides at home alone, but has friend Maxine [phone] to come stay with him at discharge. Pt is independent at baseline, drives and has no history with or SNF. Pt has no shelter care insurance or VA benefits. SW discussed DPOA/ advanced directive, pt states he has not completed this and is not interested in any information. Pt confirms that his friend Maxine will provide transport home. Per RN notes, pt has been up independent in his room- no PT needs indicated. SW provided phone number and plan on white board in room. No anticipated discharge needs. SW will continue to follow if needs arise. Assessment:Pt who is independent at baseline. Plan:Pt to discharge home when medically stable via POV. No anticipated discharge needs. SW will continue to follow if needs arise. DEBO [place]
[2017-02-12 10:32] VITALS: PULSE 58
--- NOTE | 2017-02-12 11:08 | CONS ---
[address] [address] CONSULTATION REPORT PATIENT: ROC YEH : 1955 MR#: [id number] ADMIT: 02/11/2017 JOB ID: [id number] DATE OF SERVICE: 02/12/2017 CARDIOLOGY CONSULTATION: IDENTIFICATION: Dr. Lenore Quiroz has asked that I consult on this 61-year-old male admitted with recurrent chest discomfort. HISTORY: The patient has no previous cardiac history until around one month ago when he noted progressive exertional chest pressure that would be persistent and be relieved with rest. A myocardial perfusion imaging study on January 28, 2017 showed the absence of any provocable angina but ST depression with a suggestion of a small reversible apical defect consistent with ischemia. His ejection fraction was 78%. He was subsequently seen by Dr. Bai in consultation on January 31, 2017 and had an echocardiogram on February 03, 2017 that showed normal left ventricular size and function with an ejection fraction of 60%-65% without focal abnormality or valvular abnormality. There is probable mild diastolic dysfunction. He subsequently had a cardiac catheterization on February 03, 2017 which revealed a normal left main with an 80% proximal LAD stenosis with a 50% mid LAD stenosis and an 80% long stenosis in the proximal portion of the trifurcation marginal. The left circumflex was moderate in size with [id number] diffuse disease but no high-grade lesion. The RCA had a fairly long 50% mid vessel stenosis with an 80% stenosis in the proximal portion of the PDA. At that time, Dr. Loyd placed drug-eluting stents to the LAD and ramus intermedius with an excellent angiographic result and the patient was discharged home on aspirin and Plavix but no other medications. He initially was free of any chest discomfort for around two days but then redeveloped an intermittent recurrent but brief chest discomfort just lasting a few seconds, but similar to his previous discomfort. On readmission, his troponin was borderline elevated at 0.07 although he was hypertensive at 200/120 on admission. His ECG showed no significant changes. He underwent repeat catheterization by Dr. Loyd which revealed widely patent stents to the LAD and trifurcation marginal. Fractional flow reserve analysis to the mid RCA lesion was normal at 0.91 and to the proximal left circumflex at 0.89 suggesting that they were not hemodynamically significant. He placed two drug-eluting stents to the PDA. He was started on metoprolol, lisinopril and atorvastatin and his Plavix was changed to Effient and he was discharged on February 08, 2017. He was unable to obtain Effient at his local drug store because they did not stock it and, therefore, did not have Effient or Plavix on February 09 and called our office on February 10 and was instructed to start Plavix which he did so and thus missed only really one dose of Plavix. He again was initially free of any discomfort for several days but then two evenings ago again developed an intermittent but repetitive midsternal dull pressure that typically lasted just 1-2 seconds, rarely up to 60 seconds, but had one episode that lasted around 4 minutes for which he took a sublingual nitroglycerin with immediate resolution. He has not had any further prolonged episodes. Activity has not provoked the discomfort and in fact seems to make it resolve when he gets up and walks. There is no associated dyspnea, nausea, vomiting or diaphoresis. He has had no palpitations or lightheadedness. He has chronic exertional dyspnea which he thinks is unchanged. His blood pressures at home have been in the 130-145 range. PAST MEDICAL HISTORY: Notable for hypertension and rather severe hyperlipidemia with an LDL of 167 prior to initiation of atorvastatin. He has a history of hepatitis C from multiple tattoos. HOME MEDICATIONS: 1. Aspirin 161 mg daily. 2. Atorvastatin 80 mg daily. 3. Lisinopril 20 mg daily. 4. Metoprolol 25 mg b.i.d. 5. Plavix 75 mg daily. 6. Sildenafil 20 mg p.r.n. 7. Multivitamins. ALLERGIES: PENICILLIN. FAMILY HISTORY: Unremarkable and noncontributory. 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 He has a history of alcohol abuse but stopped in 1983 but currently drinks around seven beers per week. He used to smoke up to three packs per day for around 30 years but stopped in 1988. REVIEW OF SYSTEMS: A complete review is performed and is notable for the absence of any recent fevers or chills or weight change. He had a brief visual disturbance four days ago in the right eye that was self-limited and has not recurred, and otherwise denies any vision change. No ENT problems. Denies any dyspnea although has a mild chronic cough. No hemoptysis. Denies any peptic ulcer disease or GI blood loss. Denies any genitourinary complaints or hematuria. Denies any neurologic symptoms or musculoskeletal complaints. No history of any thyroid or bleeding disorder. Denies any unusual anxiety or depression. PHYSICAL EXAMINATION: Pleasant, healthy appearing, middle-aged male, in no distress. HR 62, BP 134/69, O2 saturation 97% on room air. Weight is 74.7 kg. Skin: Warm and dry with multiple tattoos. HEENT: EOMI with fairly good dentition. Lungs: Mildly hyperresonant to percussion but no rales or wheeze on auscultation. CV: Nonpalpable PMI with a regular rate and rhythm without any appreciable murmurs or gallops. There is no obvious JVD. Carotid and femoral pulses were all 2+ with a normal upstroke without bruit. There is a moderate hematoma at the right femoral site that is mildly tender but without any appreciable bruit. Dorsalis pedis and posterior tibial pulses are 2+ bilaterally. Abdomen: Soft, nondistended, nontender without any palpable masses or organomegaly. Extremities: Warm without any clubbing, cyanosis or edema. Neuro: Moves all four extremities. Psych: Awake, alert and oriented. LABORATORY: White count is 5.0 with hematocrit of 47%. His troponin at the time of discharge on February 08 was 0.113 and on ED evaluation at this admission was 0.091 and this morning is 0.081. Potassium is 4.2 with a BUN of 19 and a creatinine of 0.8. ALT is mildly elevated at 54. ECG: Shows sinus bradycardia with borderline T-wave flattening in the lateral leads which is unchanged from his previous ECGs without any acute or evolutionary changes. Chest x-ray: No acute abnormalities. IMPRESSION: 1. Coronary artery disease status post recent percutaneous revascularization now with recurrent chest discomfort. His current chest discomfort is very atypical given its brevity and he had an excellent angiographic result from his interventions. Given the description of the discomfort and this fact, then I doubt that his discomfort represents angina. I discussed with him that there are multiple different potential reasons for chest discomfort, cardiac ischemia being only one. I have tried to provide some reassurance to the patient that I would only be concerned about more prolonged exertional type chest discomfort or chest pain that came on and was prolonged at rest. His brief absence of clopidogrel likely was of insufficient duration to produce any stent thrombosis and he now understands the importance of maintaining his clopidogrel. I would obtain one additional troponin to ensure that it is falling and then I think the patient can be discharged without any further ischemic evaluation with planned followup with Dr. Bai next week. A referral to cardiac rehabilitation would be appropriate at the time of discharge. 2. Right groin hematoma. Given the size and tenderness of his hematoma, I would obtain an ultrasound of the right femoral artery to ensure the absence of any pseudoaneurysm. 3. Hyperlipidemia. I would continue with atorvastatin. 4. Hypertension. Appears to be fairly well controlled on his current medications. Would continue. RECOMMENDATIONS: 1. Check one additional troponin to ensure that it is falling. 2. Check a right femoral artery ultrasound to exclude pseudoaneurysm. If these are benign, then I think the patient can be discharged with follow up with Dr. Bai as planned next week. I would discharge him on Plavix 75 mg daily and his current dose of aspirin as well as his other medications. At the time of discharge, referral can be made for cardiac rehab. 3. At this point, I will sign off. Please call if you have any further questions. I spent a total of an hour and 39 minutes reviewing the patient's records, interviewing and examining the patient, answering his questions and documenting such. ALISSA
--- NOTE | 2017-02-12 11:49 | DRSVH ---
PROCEDURE: US ARTERY LEG DUPLEX UNILATERAL/ILIAC CAVA, RIGHT INDICATIONS: exclude pseudoanyeursym TECHNIQUE: Color and pulse Doppler interrogation was performed of the right lower extremity arterial system, wit h image documentation. COMPARISON: None. FINDINGS: Limited sonography of the right groin demonstrates no pseudoaneurysm in the right groin. There is nor mal appearance of the right common femoral artery and vein as is demonstrated with spectral and color -flow Doppler. There is a small hematoma measuring roughly 18 mm in the right colon. IMPRESSION: 1. No evidence for right groin pseudoaneurysm. 2. Small right groin hematoma. Dictated by: Palomo Arias [facility] Interpreted: Tash Marie MD on 02/12/2017 at 11:48 Transcribed by: ALBIN on 02/12/2017 at 11:49 Approved by: Tash Marie M.D. on 02/12/2017 at 19:25
[2017-02-12 13:08] VITALS: BP 137/79; PULSE 57; RESP 18; O2SAT 97
[2017-02-12] MEDS ORDERED: CLOP75TA28 PO (15:11)
--- NOTE | 2017-02-12 15:17 | PCM.DIMED ---
Discharge Instructions Date of Service Feb 12, 2017 Dates of Hospitalization Feb 11, 2017 at 21:05 Discharge Diagnosis Discharge Diagnosis 1. Coronary artery disease status post recent percutaneous revascularization now with recurrent chest discomfort. 2. Right groin hematoma. 3. Hyperlipidemia. 4. Hypertension. Medication Instructions PLEASE CONTINUE TO TAKE PLAVIX. A SCRIPT FOR THE MEDICATION WAS SENT TO YOUR PHARMACY. STOP TAKING EFFIENT. Diet Heart Healthy Activity Limited until seen by PCP Call your provider Shortness of breath, Bleeding, Chest pain, Excessive diarrhea Patient Instructions Please follow up with your appointment with Dr. Bai. Dr. Garner, our air shovel operator felt, that you were okay for discharge. The ultrasound of your groin showed no pseudoaneurysm. Follow-up Provider: Deonte Allen MD Follow-up with PCP in: 3 weeks Provider: Betzy Bai MD Follow-up in: 1 week Cardiac Rehab: 1 week Nette Cheung DO Feb 12, 2017 15:17
--- NOTE | 2017-02-12 16:10 | NUR ---
discharge paperwork reviewed, no questions at this time. Discussed the importance of taking medications how they are prescribed. pt denies pain/distress. belongings bagged and given to pt. pt chooses to walk with to private car to return to private residence.
--- NOTE | 2017-02-12 16:16 | NUR ---
Social Work-discharge: Data:EMR reviewed. Pt is on day 1 of hospitalization. Pt is medically stable for discharge home today. Pt has been up independent in his room. No discharge needs identified. All updated and agreeable to plan. Assessment:Pt who is independent at baseline. Plan:Pt to discharge home today via POV. No discharge needs identified. All updated and agreeable to plan. DEBO Galicia
--- NOTE | 2017-02-13 17:50 | PCM.DC.MED ---
Discharge Summary Date of Service Feb 13, 2017 Dates of Hospitalization Date of Hospital Admission Feb 11, 2017 at 21:05 Date of Discharge: Feb 12, 2017 Providers: Admitting Physician: Idalia Melton MD Primary Care Physician: Deonte Allen MD Attending Physician: Idalia Melton MD Diagnosis at Time of Discharge Diagnosis at Time of Discharge 1. Coronary artery disease status post recent percutaneous revascularization now with recurrent chest discomfort. 2. Right groin hematoma. 3. Hyperlipidemia. 4. Hypertension. Consultations Cardiology Procedures XRay, CTs & MRIs PROCEDURE: X-RAY CHEST ONE VIEW, PORTABLE IMPRESSION: No acute cardiopulmonary disease. Dictated by: Curtis Tariq M.D. on 02/11/2017 at 20:05 PROCEDURE: US ARTERY LEG DUPLEX UNILATERAL/ILIAC CAVA, RIGHT IMPRESSION: 1. No evidence for right groin pseudoaneurysm. 2. Small right groin hematoma. Dictated by: Palomo Arias [facility] Interpreted: Tash Marie MD on 02/12/2017 at 11:48 ECG 12 Lead Sinus bradycardia Rate [address] evelation T wave inversion AVR Time: 19:35 Interpreted by: ED physician Normal ECG Interpretation: No change from prior ECGs (02/07/17) Brief History From Dr. Quiroz's H and P: "61-year-old male with past medical history of possible CO, hepatitis C, and intermittent tachycardia presents with one-week intermittent chest discomfort. On January 28 patient had abnormal treadmill exercise tolerance test. On February 03 he received cardiac catheterization with stent placement in the proximal left anterior descending and the ramus intermedius. On February 06 patient returned to the emergency department with complaints of chest pain that awoke him from sleep. He returned to the emergency department and had subsequent percutaneous intervention with placement of tandem drug-eluting stents in right posterior descending artery. After each stent placement he reports feeling well for a day or 2 followed by continued intermittent chest pain with associated diaphoresis and shortness of breath. After his most recent heart catheterization he was discharged on Effient however was unable to fill this prescription and did not take his Plavix as previously directed to do for 2 days. He is very concerned about a blood clot forming on the stents. Patient reports having mild headache which he relates to musculoskeletal neck pain and discomfort. She had one episode of Whipple's in his vision last night that he postulates is medication related. In the emergency department patient has had some sinus bradycardia down to 57 BPM, he has been afebrile with some episodes of hypertension up to 166/88" Hospital Course 61-year-old male with past medical history of possible CO, hepatitis C, and intermittent tachycardia presents with one-week intermittent chest discomfort. Status post stent placement 2 02/03/2017, 2 02/07/2017 1. Persistent chest pain, on admission, subacute - Continued atorvastatin, metoprolol, lisinopril, aspirin as previously prescribed - Nitroglycerin sublingual when necessary for chest pain - Troponin trended down. Cardiology felt that the patient was safe to DC home if his troponin trended down. - Patient placed back on Plavix per cardiology. - Follow up with Dr. Bai outpatient. 2. Hypertension, present on admission, subacute - Continued metoprolol and lisinopril 3. Hematoma of groin, post cath - U/S did not show a pseudoaneurysm. Exam Vital Signs (Last) Date Time Temp Pulse Resp B/P Pulse Ox O2 Delivery O2 Flow Rate FiO2 02/12/17 13:08 36.9 57 18 137/79 97 Room Air Exam General: No acute distress, well-developed, well-nourished, appropriately interactive HEENT: Normocephalic, atraumatic. External ears without defect. Pupils equal, round, and reactive to light and accommodation. Anicteric sclerae, moist conjunctivae, and no lid lag. Oropharynx free of erythema and cobble stoning with moist mucosa. Neck: Supple with full range of motion. No lymphadenopathy or thyromegaly. Cardiovascular: Regular rate and rhythm with no murmurs, rubs, or gallops appreciated Pulmonary: Clear to auscultation bilaterally with no crackles, wheezes, or rhonchi. Normal respiratory effort with no use of accessory muscles. Abdomen: Bowel tones present. Soft, nontender, nondistended. No hepatosplenomegaly or masses appreciated. Extremities: No clubbing, cyanosis, edema, or lymphadenopathy appreciated. Skin: Normal temperature, turgor, and texture; no rash, ulcers, or subcutaneous nodules appreciated. Neurological: Cranial nerves grossly intact. Normal muscle strength, tone, and bulk. No known gait impairment. Psychiatric: Normal mood and affect. Alert and oriented to person, place, and time. Test 02/11/17 19:40 02/11/17 19:49 02/11/17 23:12 02/12/17 07:02 Magnesium Level 2.2mg/dL (1.6-2.6) Pro-B-Type Natriuretic Peptide 55.60pg/mL (0-210) D-Dimer < 0.5mg/L (<0.50) Urine Color Yellow (YELLOW) Urine Appearance Clear (CLEAR,HAZY) Urine pH 6.0 (5.0-8.0) Urine Specific [place] 1.025 (1.003-1.035) Urine Protein Negativemg/dL (NEG,TRACE) Urine Glucose (UA) Negativemg/dL (NEGATIVE) Urine Ketones Negativemg/dL (NEGATIVE) Urine Occult Blood Negative (NEGATIVE) Urine Nitrite Negative (NEGATIVE) Urine Bilirubin Negative (NEGATIVE) Urine Urobilinogen Normalmg/dL (NORMAL) Urine Leukocyte Esterase Negative (NEGATIVE) Urine RBC 0-2/hpf (0-2) Urine WBC 0-5/hpf (0-5) Urine Epithelial Cells Occasional/hpf (NONE-MOD) Urine Crystals Oxalic acid crystals (NONE Urine Bacteria Few/hpf (NONE-FEW) Urine Hyaline Casts None/lpf (NONE) Urine Granular Casts None seen (NONE SEEN) Urine Waxy Casts None seen (NONE SEEN) Urine Red Blood Cell Casts None seen (NONE SEEN) Urine White Blood Cell Casts None seen (NONE SEEN) Urine Mucus Present (None Seen) Urine Trichomonas None seen (NONE SEEN) Urine Yeast None (NONE SEEN) Urinalysis Comment None Urine Culture Reflexed Not indicated White Blood Count 5.0th/mm3 (3.8-10.1) Red Blood Count 5.25mil/mm3 (4.40-5.80) Hemoglobin 16.1g/dL (13.8-17.2) Hematocrit 47.4% (41.0-50.0) Mean Corpuscular Volume 90.3fL (81-100) Mean Corpuscular Hemoglobin 30.7pg (27.0-35.0) Mean Corpuscular Hemoglobin Concent 34.0% (32.0-37.0) Red Cell Distribution Width 13.3% (12.3-15.4) Platelet Count 171bil/L (150-400) Neutrophils (%) (Auto) 55.3% (40-74) Lymphocytes (%) (Auto) 28.3% (14-46) Monocytes (%) (Auto) 11.0% (4-12) Eosinophils (%) (Auto) 4.4% (0-5) Basophils (%) (Auto) 0.8% (0-3) Sodium Level 142mEq/L (134-144) Potassium Level 4.2mEq/L (3.5-5.2) Chloride Level 103mEq/L (97-108) Carbon Dioxide Level 22mmol/L (18-29) Blood Urea Nitrogen 19mg/dL (8-27) Creatinine 0.78mg/dL (0.76-1.27) Estimat Glomerular Filtration Rate 107mL/min (>59) Glucose Level 95mg/dL (60-99) Calcium Level 9.2mg/dL (8.5-10.1) Total Bilirubin 1.0mg/dL (0.0-1.2) Aspartate Amino Transf (AST/SGOT) 46U/L (0-50) Alanine Aminotransferase (ALT/SGPT) 54U/L (0-44) Alkaline Phosphatase 74U/L (25-160) Total Protein 6.4g/dL (6.4-8.4) Albumin 4.1g/dL (3.4-5.0) Test 02/12/17 09:30 02/12/17 11:55 Prothrombin Time 11.4sec (8.1-12.5) Prothromb Time International Ratio 1.06ratio Troponin T 0.078ug/L (0.0-0.011) Discharge Medications Discharge Medications Aspirin (Aspirin) 325 Mg Tablet 162.5 MG PO DAILY (Reported) Atorvastatin Calcium (Atorvastatin Calcium) 40 Mg Tablet 80 MG PO HS Prescribed by: WES MARCIAL DO Clopidogrel (Clopidogrel) 75 Mg Tablet 75 MG PO DAILY Prescribed by: NETTE CHEUNG DO Lisinopril (Lisinopril) 20 Mg Tablet 20 MG PO DAILY Prescribed by: WES MARCIAL DO Metoprolol Tartrate (Metoprolol Tartrate) 25 Mg Tablet 25 MG PO BID Prescribed by: WES MARCIAL DO Multivit with Calcium,Iron,Min (Therapeutic M) 1 Each Tablet 1 EACH PO DAILY ( Reported) As needed Carboxymethylcellulose Sodium (Refresh Tears) 15 Ml Drops 1 APPLIC OP PRN PRN PRN DRY EYES (Reported) Hydrocortisone (Hydrocortisone) 1 % Cream..g. 1 APPLIC TOPICAL BID PRN PRN For Itching (Reported) Ibuprofen (Ibuprofen) 200 Mg Capsule 400 MG PO DAILY PRN PRN Headache (Reported ) USES SPARINGLY Nitroglycerin SL (Nitrostat) 0.4 Mg Tab.subl 0.4 MG SL Q5MIN PRN PRN For Chest Pain (Reported) Sildenafil Citrate (Sildenafil) 20 Mg Tablet 20 MG PO DIRECTED PRN PRN for sexual activity (Reported) Additional med instructions PLEASE CONTINUE TO TAKE PLAVIX. A SCRIPT FOR THE MEDICATION WAS SENT TO YOUR PHARMACY. STOP TAKING EFFIENT. Followup Plan Discharge Diet: Heart Healthy Discharge Activity: Limited until seen by PCP Patient Instructions Please follow up with your appointment with Dr. Bai. Dr. Garner, our tamale machine feeder felt, that you were okay for discharge. The ultrasound of your groin showed no pseudoaneurysm. Follow-up Provider: Deonte Allen MD Follow-up with PCP in: 3 weeks Provider: Betzy Bai MD Follow-up in: 1 week Cardiac Rehab: 1 week Time spent 35 min Attending Statement The patient was seen and examined together with Resident / House-staff on and I agree with the history, exam and plan as outlined in the note above. Nette Cheung DO Feb 13, 2017 17:50 Cam Castelan Feb 13, 2017 18:01
== END 2017-02-12 15:00 | disposition home or self-care (01) ==
LOC: SED 19:14 → MPC 21:05
PROVIDERS: ADMIT Specialist; ATTEND Specialist
DX: R07.89 Other chest pain (principal); I25.10 Atherosclerotic heart disease of native coronary artery without angina pectoris; I25.2 Old myocardial infarction; Z95.5 Presence of coronary angioplasty implant and graft; S30.1XXA Contusion of abdominal wall, initial encounter; E78.5 Hyperlipidemia, unspecified; I10 Essential (primary) hypertension; R00.0 Tachycardia, unspecified; B19.20 Unspecified viral hepatitis C without hepatic coma; Z87.891 Personal history of nicotine dependence; F12.90 Cannabis use, unspecified, uncomplicated; N43.41 Spermatocele of epididymis, single; K76.9 Liver disease, unspecified; Z79.02 Long term (current) use of antithrombotics/antiplatelets; Z79.82 Long term (current) use of aspirin
CPT/HCPCS: 36415; 71010; 80053; 81000; 83735; 83880; 84484; 85025; 85379; 85610; 93005; 93926; 93979; 99285; G0378; J1650